=== PATIENT | male | born 1955 | race Caucasian/White ===

== ENCOUNTER 2016-12-07 19:56 | Emergency (ER) | payer MEDICARE ==
--- NOTE | 2016-12-07 20:20 | ED Physician Chart ---
Chief Complaint/HPI - Patient Information Date Seen:: 12/07/16 Time Seen:: 20:14 Chief Complaint:: ABDOMINAL PAIN History of Present Illness:: THIS IS A 61 YO MALE DOWNS SYNDROME PATIENT WITH EPIGASTRIC PAIN THAT STARTED THIS EVENING. HE HAS NOT VOMITED OR HAD DIARRHEA. HE RECENTLY HAD COLON SURGERY FOR CANCER. 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 HE ALSO HAS A HISTORY OF SEIZURES. Historian:: EMS, Medical Records Review:: Nurse's Note Reviewed Review of Systems - Review of Systems General/Constitutional: No fever, No chills, No weight loss, No weakness, No diaphoresis, No edema, No loss of appetite Skin: No skin lesions, No rash, No bruising Head: No headache, No light-headedness Eyes: No loss of vision, No pain, No diplopia ENT: No earache, No nasal drainage, No sore throat, No tinnitus Neck: No neck pain, No swelling, No thyromegaly, No stiffness, No mass noted Cardio Vascular: No chest pain, No palpitations, No PND, No orthopnea, No edema Pulmonary: No SOB, No cough, No sputum, No wheezing GI: No nausea, No vomiting, No diarrhea, Pain, No melena, No hematochezia, No constipation, No hematemesis G/U: No dysuria, No frequency, No hematuria Musculoskeletal: No bone or joint pain, No back pain, No muscle pain Endocrine: No polyuria, No polydipsia Psychiatric: No prior psych history, No depression, No anxiety, No suicidal ideation Hematopoietic: No bruising, No lymphadenopathy Allergic/Immuno: No urticaria, No angioedema Neurological: No syncope, No focal symptoms, No weakness, No paresthesia, No headache, No seizure, No dizziness, No confusion, No vertigo Past Medical History - Past Medical History Past Medical History: HTN, Seizures, Dementia Family History: None Social History: Non Smoker, No Alcohol, No Drug Use, Single, Care Facility Surgical History: other (COLON SURGERY) Psychiatricy History: Dementia Medication: Reviewed Family Medical History - Family Member Mother History Unknown: Yes Physical Exam - Physical Examination General/Constitutional: Awake, Well-developed, well-nourished, Alert, No distress, GCS 15, Non-toxic appearing, Ambulatory Head: Atraumatic Eyes: Lids, conjuctiva normal, PERRL, EOMI Skin: Nl inspection, No rash, No skin lesions, No ecchymosis, Well hydrated, No lymphadenopathy ENMT: External ears, nose nl, Nasal exam nl, Lips, teeth, gums nl Neck: Nontender, Full ROM w/o pain, No JVD, No nuchal rigidity, No bruit, No mass, No stridor Respiratory: Nl effort/Exclusion, Clear to Auscultation, No Wheeze/Rhonchi/Rales Cardio Vascular: RRR, No murmur, gallop, rubs, NL S1 S2 GI: No tenderness/rebounding/guarding, No organomegaly, No hernia, Normal BS's, No mass/bruits, No McBurney tenderness Other GI comments:: THE ABDOMEN IS SLIGHTLY DISTENDED BUT NOT TENDER. : No CVA tenderness Extremities: No tenderness or effusion, Full ROM, normal strength in all extremities, No edema, Normal digits & nails Neuro/Psych: Alert/oriented, DTR's symmetric, Normal sensory exam, Normal motor strength, Judgement/insight normal, Mood normal, Normal gait, No focal deficits Misc: normal gait, Normal back, No paraspinal tenderness Labs/Radiology/EKG Results - Lab Results Results: Laboratory Results - last 24 hr 12/07/16 12/07/16 12/07/16 20:10 20:10 20:10 WBC 5.2 RBC 3.54 L Hgb 12.5 L Hct 36.3 L MCV 102.6 H MCH 35.3 H MCHC Differential 34.5 RDW 12.4 Plt Count 168 MPV 7.0 Neutrophils (Manual) 59 Lymphocytes 29 Monocytes 11 H Eosinophils 1 Platelet Estimate ADEQUATE Platelet Morphology NORMAL RBC Morph Micro Appear NORMAL PT 9.3 L INR 0.90 PTT (Actin FS) 22.7 L Sodium Potassium Chloride Carbon Dioxide Anion Gap BUN Creatinine Est GFR ( Amer) Est GFR (Non-Af Amer) BUN/Creatinine Ratio Glucose Calcium Total Bilirubin AST ALT Alkaline Phosphatase Troponin I Total Protein Albumin Globulin Albumin/Globulin Ratio Triglycerides 82 Cholesterol 172 LDL Cholesterol Direct 93 HDL Cholesterol 59 TSH Urine Source Urine Color Urine Clarity Urine pH Ur Specific [place] Urine Protein Urine Glucose (UA) Urine Ketones Urine Blood Urine Nitrate Urine Bilirubin Urine Urobilinogen Ur Leukocyte Esterase Urine RBC Urine WBC Ur Epithelial Cells Amorphous Sediment Urine Bacteria Urine Mucus Carbamazepine 12/07/16 12/07/16 12/07/16 20:10 20:10 20:10 WBC RBC Hgb Hct MCV MCH MCHC Differential RDW Plt Count MPV Neutrophils (Manual) Lymphocytes Monocytes Eosinophils Platelet Estimate Platelet Morphology RBC Morph Micro Appear PT INR PTT (Actin FS) Sodium 130 L Potassium 3.9 Chloride 104 Carbon Dioxide 22.3 Anion Gap 7.6 BUN 17 Creatinine 0.6 L Est GFR ( Amer) > 60.0 Est GFR (Non-Af Amer) > 60.0 BUN/Creatinine Ratio 28.3 Glucose 107 H Calcium 9.4 Total Bilirubin 0.4 AST 18 ALT 11 Alkaline Phosphatase 44 Troponin I < 0.01 L Total Protein 7.2 Albumin 3.8 L Globulin 3.4 Albumin/Globulin Ratio 1.1 Triglycerides Cholesterol LDL Cholesterol Direct HDL Cholesterol TSH 1.84 Urine Source Urine Color Urine Clarity Urine pH Ur Specific [place] Urine Protein Urine Glucose (UA) Urine Ketones Urine Blood Urine Nitrate Urine Bilirubin Urine Urobilinogen Ur Leukocyte Esterase Urine RBC Urine WBC Ur Epithelial Cells Amorphous Sediment Urine Bacteria Urine Mucus Carbamazepine 12/07/16 12/07/16 20:10 21:10 WBC RBC Hgb Hct MCV MCH MCHC Differential RDW Plt Count MPV Neutrophils (Manual) Lymphocytes Monocytes Eosinophils Platelet Estimate Platelet Morphology RBC Morph Micro Appear PT INR PTT (Actin FS) Sodium Potassium Chloride Carbon Dioxide Anion Gap BUN Creatinine Est GFR ( Amer) Est GFR (Non-Af Amer) BUN/Creatinine Ratio Glucose Calcium Total Bilirubin AST ALT Alkaline Phosphatase Troponin I Total Protein Albumin Globulin Albumin/Globulin Ratio Triglycerides Cholesterol LDL Cholesterol Direct HDL Cholesterol TSH Urine Source CLEAN C Urine Color YELLOW Urine Clarity CLEAR Urine pH 6.5 Ur Specific [place] 1.025 Urine Protein TRACE Urine Glucose (UA) NEGATIVE Urine Ketones TRACE Urine Blood NEGATIVE Urine Nitrate NEGATIVE Urine Bilirubin NEGATIVE Urine Urobilinogen 0.2 Ur Leukocyte Esterase NEGATIVE Urine RBC NONE SEEN Urine WBC 0-2 Ur Epithelial Cells RARE Amorphous Sediment FEW URATES Urine Bacteria FEW Urine Mucus FEW Carbamazepine 7.2 - Radiology Results Results: ULTRASOUND OF THE ABDOMEN = NAD - EKG Interpretations EKG Time:: 20:26 Rhythm: sinus [place]: left Rate: 80 ED Septic Shock - . Is Septic Shock (SBP<90, OR Lactate>4 mmol\L) present?: No Reassessment (Disposition) - Reassessment Reassessment Condition:: Improved - Diagnosis Diagnosis:: GASTRITIS ANEMIA - Aftercare/Follow up Instructions Aftercare/Follow-Up Instructions:: Counseled pt regarding lab results/diagnosis & need follow up, Refer to Discharge Instructions, Counseled pt & family regarding lab results/diagnosis & need follow up - Patient Disposition Discharge/Transfer:: Home Condition at Disposition:: Improved ED Discharge Plan - Patient Disposition Admit/Discharge/Transfer: PT DISCHARGED HOME Condition at Disposition: Improved
[2016-12-07 20:47] LABS: HEMATOCRIT 36.3 % (39.0-49.0); HEMOGLOBIN 12.5 gm/dL (13.2-17.3); MEAN CELL VOLUME 102.6 fl (80-99); MEAN CORPUSCULAR HEMOGLOBIN 35.3 pg (26.0-30.0); MEAN CORPUSCULAR HGB CONC 34.5 pg (28.0-36.0); PLATELET COUNT 168 Th/cmm (150-400); RED BLOOD COUNT 3.54 Mil/cmm (4.30-5.70); RED CELL DISTRIBUTION WIDTH 12.4 % (11.5-20.0); WHITE BLOOD COUNT 5.2 Th/cmm (4.8-10.8)
[2016-12-07 21:01] LABS: INR 0.9 (0.5-1.4); PROTHROMBIN TIME (TEST) 9.3 SECONDS (9.5-11.5)
[2016-12-07 21:07] LABS: ALB/GLOB RATIO 1.1 (1.0-1.8); ALKALINE PHOSPHATASE 44 U/L (34-104); ANION GAP 7.6 (7.0-16.0); BILIRUBIN,TOTAL 0.4 mg/dL (0.3-1.0); BUN - UREA NITROGEN 17 mg/dL (7-25); BUN/CREATININE RATIO 28.3; CALCIUM SERUM 9.4 mg/dL (8.6-10.3); CARBON DIOXIDE 22.3 mEq/L (21.0-31.0); CHLORIDE 104 mEq/L (98-107); CHOLESTEROL 172 mg/dL (<200); CREATININE - SERUM 0.6 mg/dL (0.7-1.3); GLUCOSE 107 mg/dL (70-105); POTASSIUM SERUM 3.9 mEq/L (3.5-5.1); SGOT 18 U/L (13-39); SGPT/ALT 11 U/L (7-52); SODIUM SERUM 130 mEq/L (136-145); TRIGLYCERIDES 82 mg/dL (<150)
[2016-12-07 21:17] LABS: EOSINOPHIL 1 % (0-5); NEUTROPHILS 59 % (40-80); PLATELET ESTIMATE ADEQUATE (NORMAL); PLATELET MORPHOLOGY NORMAL (NORMAL); TOTAL CELLS COUNTED 100
[2016-12-07 21:40] LABS: URINE BILIRUBIN NEGATIVE (NEGATIVE); URINE BLOOD NEGATIVE (NEGATIVE); URINE COLOR YELLOW; URINE GLUCOSE (UA) NEGATIVE (NEGATIVE); URINE KETONE TRACE mg/dL (NEGATIVE); URINE PH 6.5; URINE PROTEIN TRACE mg/dL (NEGATIVE); URINE UROBILINOGEN 0.2 E.U./dL (0.2 - 1.0)
[2016-12-07 21:41] LABS: URINE AMORPHOUS SEDIMENT FEW URATES (NONE SEEN); URINE BACTERIA FEW /hpf (NONE SEEN); URINE EPITHELIAL CELLS RARE /lpf (FEW); URINE RBC NONE SEEN /hpf (0-5); URINE WBC 0-2 /hpf (0-5)
--- NOTE | 2016-12-08 08:49 | Diagnostic Imaging Report ---
Portable chest x-ray HISTORY: Pain The heart size is difficult to assess with portable technique and a poor inspiration. No acute focal pulmonary processes. A vascular catheter tip extends into the region of the right atrium. No hilar or mediastinal abnormalities. IMPRESSION: 1. No acute abnormalities 2. Vascular catheter extending into the region of the right atrium.
--- NOTE | 2016-12-08 08:50 | Diagnostic Imaging Report ---
Abdominal ultrasound HISTORY: Pain Exam is limited due to difficulty in patient positioning and mobility. The liver demonstrates an increase in parenchymal echogenicity. The finding may be associated with fatty infiltration and should be correlated with liver function tests. No obvious focal lesions. Gallbladder appears normal. No calculi are seen. No biliary dilatation. The pancreas cannot be seen due to bowel gas. The kidneys appear normal bilaterally. No other retroperitoneal or intra-abdominal abnormalities. IMPRESSION: 1. Somewhat limited exam due to patient immobility and difficulty in positioning. 2. Changes that may be associated with hepatic fatty infiltration. The findings should be correlated with liver function tests.
== END 2016-12-08 00:30 | disposition home or self-care (01) ==
LOC: ER 19:56
DX: K29.40 Chronic atrophic gastritis without bleeding (principal); D64.9 Anemia, unspecified; I10 Essential (primary) hypertension; Z98.890 Other specified postprocedural states
CPT/HCPCS: 36415-UA; 71010-TC; 76700-TC; 80053-TC; 80061-TC; 80156-TC; 81001-TC; 84443-TC; 84484-TC; 85007-TC; 85027-TC; 85610-TC; 85730-TC; 93005; Z7610

== ENCOUNTER 2017-05-19 22:43 | Inpatient (IN) | payer MEDICARE ==
--- NOTE | 2017-05-19 23:07 | ED Physician Chart ---
Chief Complaint/HPI - Patient Information Date Seen:: 05/19/17 Time Seen:: 22:50 Chief Complaint:: Abdominal Pain History of Present Illness:: onset x 2 days of abdominal pain with N/V; no A/D/C, H/As, Neck Pain, C/P, cough , or urinary s/s Allergies:: Allergies Allergy/AdvReac Type Severity Reaction Status Date / Time No Known Allergies Allergy Verified 12/07/16 20:15 Vitals:: Vital Signs - 8 hr 05/19/17 22:50 Temp 97.5 F HR 80 RR 18 BP 170/99 O2 Sat % 94 Historian:: Patient, EMS Review:: Nurse's Note Reviewed, Old Chart Reviewed, EMS run form Reviewed, Transfer documents Reviewed Review of Systems - Review of Systems General/Constitutional: Fever, Chills, No weight loss, Weakness, No diaphoresis , No edema, No loss of appetite Skin: No skin lesions, No rash, No bruising Head: No headache, No light-headedness Eyes: No loss of vision, No pain, No diplopia ENT: No earache, No nasal drainage, No sore throat, No tinnitus Neck: No neck pain, No swelling, No thyromegaly, No stiffness, No mass noted Cardio Vascular: No chest pain, No palpitations, No PND, No orthopnea, No edema Pulmonary: No SOB, No cough, No sputum, No wheezing GI: Nausea, Vomiting, Diarrhea, Pain, Melena, No hematochezia, Constipation, No hematemesis G/U: No dysuria, No frequency, No hematuria Musculoskeletal: No bone or joint pain, No back pain, No muscle pain Endocrine: No polyuria, No polydipsia Psychiatric: No prior psych history, No depression, No anxiety, No suicidal ideation, No homicidal ideation, No auditory hallucination, No visual hallucination Hematopoietic: No bruising, No lymphadenopathy Allergic/Immuno: No urticaria, No angioedema Neurological: No syncope, No focal symptoms, No weakness, No paresthesia, No headache, No seizure, No dizziness, Confusion, No vertigo Past Medical History - Past Medical History Obtainable: Yes Past Medical History: HTN, Dyslipidemia, Arthritis, Dementia, Other (BPH; Anemia , Colon Cancer) Family History: HTN, Cancer Social History: Non Smoker, No Alcohol, No Drug Use, Single, Care Facility Surgical History: None Psychiatricy History: Dementia Medication: Reviewed Family Medical History - Family Member Mother History Unknown: Yes Physical Exam - Physical Examination General/Constitutional: Awake, Well-developed, well-nourished, Alert, No distress, GCS 15, Non-toxic appearing, Ambulatory Head: Atraumatic Eyes: Lids, conjuctiva normal, PERRL, EOMI Skin: Nl inspection, No rash, No skin lesions, No ecchymosis, Well hydrated, No lymphadenopathy ENMT: External ears, nose nl, Nasal exam nl, Lips, teeth, gums nl Neck: Nontender, Full ROM w/o pain, No JVD, No nuchal rigidity, No bruit, No mass, No stridor Respiratory: Nl effort/Exclusion, Clear to Auscultation, No Wheeze/Rhonchi/Rales Cardio Vascular: RRR, No murmur, gallop, rubs, NL S1 S2 GI: No tenderness/rebounding/guarding, No organomegaly, No hernia, Normal BS's, Nondistended, No mass/bruits, No McBurney tenderness : No CVA tenderness Extremities: No tenderness or effusion, Full ROM, normal strength in all extremities, No edema, Normal digits & nails Neuro/Psych: Alert/oriented, DTR's symmetric, Normal sensory exam, Normal motor strength, Judgement/insight normal, Mood normal, Normal gait, No focal deficits Misc: normal gait, Normal back, No paraspinal tenderness Labs/Radiology/EKG Results - Lab Results Results: Na+: 131 - Radiology Results Results: Retroperitoneal Adenopathy ED Septic Shock - . Is Septic Shock (SBP<90, OR Lactate>4 mmol\L) present?: No - <6hrs of presentation: Vital Signs: Vital Signs - 8 hr 05/19/17 22:50 Temp 97.5 F HR 80 RR 18 BP 170/99 O2 Sat % 94 Reassessment (Disposition) - Reassessment Reassessment Condition:: Improved - Diagnosis Diagnosis:: Hyponatremia; Abdominal Pain; Vomiting; AGE; Gastritis; Dehydration - Aftercare/Follow up Instructions Aftercare/Follow-Up Instructions:: Counseled pt regarding lab results/diagnosis & need follow up, Counseled pt & family regarding lab results/diagnosis & need follow up - Patient Disposition Discharge/Transfer:: Acute Care w/in this hosp Accepting Physician:: Dr. Reynolds Time Called:: 114 Time Responded:: 01:15 Admitted to:: Med/Surg Spoke to:: Dr. Reynolds Admitting Medical Physician:: Dr. Reynolds Condition at Disposition:: Stable, Improved
[2017-05-19] MEDS ORDERED: Sodium Chloride 0.9% 1,000 ML IV ONE (23:08)
[2017-05-19 23:45] LABS: % BASOPHILS 0.1 % (0.0-2.0); % EOSINOPHILS 0.9 % (0.0-5.0); HEMATOCRIT 39.2 % (39.0-49.0); HEMOGLOBIN 13.1 gm/dL (13.2-17.3); MEAN CORPUSCULAR HEMOGLOBIN 35.8 pg (26.0-30.0); MEAN CORPUSCULAR HGB CONC 33.4 pg (28.0-36.0); MEAN PLATELET VOLUME 7.5 fl; NEUTROPHILE ABSOLUTE 3.2 Th/cmm (1.8-8.0); PLATELET COUNT 137 Th/cmm (150-400); RED BLOOD COUNT 3.66 Mil/cmm (4.30-5.70); RED CELL DISTRIBUTION WIDTH 16.6 % (11.5-20.0); WHITE BLOOD COUNT 6.2 Th/cmm (4.8-10.8)
[2017-05-19 23:57] LABS: INR 0.94 (0.5-1.4); PROTHROMBIN TIME (TEST) 9.8 SECONDS (9.5-11.5)
[2017-05-19 23:58] LABS: URINE BILIRUBIN NEGATIVE (NEGATIVE); URINE BLOOD TRACE (NEGATIVE); URINE GLUCOSE (UA) NEGATIVE (NEGATIVE); URINE KETONE 15 mg/dL (NEGATIVE); URINE PROTEIN TRACE mg/dL (NEGATIVE); URINE UROBILINOGEN 0.2 E.U./dL (0.2 - 1.0)
[2017-05-20 00:02] LABS: URINE COLOR YELLOW
[2017-05-20 00:02] LABS: AMYLASE SERUM 49 U/L (29-103); LIPASE 11 U/L (11-82)
[2017-05-20 00:03] LABS: URINE BACTERIA NONE SEEN /hpf (NONE SEEN); URINE EPITHELIAL CELLS NONE SEEN /lpf (FEW); URINE RBC 0-2 /hpf (0-5); URINE WBC NONE SEEN /hpf (0-5)
[2017-05-20 00:05] LABS: ALB/GLOB RATIO 1.3 (1.0-1.8); ALKALINE PHOSPHATASE 54 U/L (34-104); ANION GAP 11.9 (7.0-16.0); BILIRUBIN,TOTAL 0.7 mg/dL (0.3-1.0); BUN - UREA NITROGEN 22 mg/dL (7-25); BUN/CREATININE RATIO 31.4; CARBON DIOXIDE 22.7 mEq/L (21.0-31.0); CHLORIDE 101 mEq/L (98-107); CHOLESTEROL 186 mg/dL (<200); CREATININE - SERUM 0.7 mg/dL (0.7-1.3); GLUCOSE 103 mg/dL (70-105); POTASSIUM SERUM 4.6 mEq/L (3.5-5.1); SGOT 27 U/L (13-39); SGPT/ALT 16 U/L (7-52); SODIUM SERUM 131 mEq/L (136-145); TRIGLYCERIDES 105 mg/dL (<150)
[2017-05-20 00:10] LABS: TROP I 0.01 ng/mL (0.01-0.05)
[2017-05-20 00:14] LABS: BNP 13.5 pg/mL (5.0-100.0)
[2017-05-20 00:54] LABS: MEAN CELL VOLUME 107.3 fl (80-99)
[2017-05-20 01:10] LABS: CREATINE KINASE MB 6.1 ng/mL (0.6-6.3)
[2017-05-20] MEDS ORDERED: Guaifenesin DM 10 ML UDC PO PRN (01:36)
[2017-05-20] MEDS ORDERED: Maalox 30 mL Cup PO PRN (01:36)
[2017-05-20] MEDS ORDERED: Lactulose 10 Gm/15 mL 30mL UDC PO PRN (02:00)
[2017-05-20 02:24] VITALS: BP 141/87
[2017-05-20] MEDS: Sodium Chloride 0.9% 1,000 ML IV SCH ×3 (02:59→20:17)
[2017-05-20 07:22] LABS: ANION GAP 9.4 (7.0-16.0); BUN - UREA NITROGEN 20 mg/dL (7-25); BUN/CREATININE RATIO 28.6; CALCIUM SERUM 9.5 mg/dL (8.6-10.3); CARBON DIOXIDE 25.2 mEq/L (21.0-31.0); CHLORIDE 101 mEq/L (98-107); CREATININE - SERUM 0.7 mg/dL (0.7-1.3); GLUCOSE 91 mg/dL (70-105); MAGNESIUM 2.4 mg/dL (1.9-2.7); POTASSIUM SERUM 4.6 mEq/L (3.5-5.1); SODIUM SERUM 131 mEq/L (136-145)
--- NOTE | 2017-05-20 08:07 | Diagnostic Imaging Report ---
CT scan abdomen and pelvis without intravenous contrast HISTORY: Pain, prior surgery. Total DLP equals 482 CTDI equals 8.3 Axial sections were obtained from the xiphoid process down to the pubic symphysis. Limited sections of the lower chest demonstrate coronary artery calcification. Artifact with electrode lead wires noted. The liver exhibits a homogeneous parenchyma. No focal lesions. The spleen appears normal. No focal abnormality seen in the region of the pancreas. No significant focal renal lesions. No calculi. No hydronephrosis. Limited lymph nodes seen in the periaortic region. Findings of questionable significance but should be correlated clinically. Surgical changes associated with a right hemicolectomy noted. No significant bowel dilatation. The exam of the pelvis demonstrates preservation of normal fat planes. No abnormal soft tissue masses or abnormal fluid collections. Small bilateral fat-containing inguinal hernias are noted. Compression fracture of the appears chronic involves the body of T12. IMPRESSION: 1. Surgical changes including findings of prior right hemicolectomy noted. 2. Prominent periaortic lymph nodes. Findings of questionable significance which should be correlated clinically. 3. Compression fracture involving the body of T12 probably chronic. 4. Small bilateral fat-containing inguinal hernias 5. Atherosclerotic vascular changes
--- NOTE | 2017-05-20 08:18 | Diagnostic Imaging Report ---
Portable chest x-ray History: Pain Allowing for portable technique the heart size is normal. No focal pulmonary parenchymal processes. No hilar or mediastinal abnormalities. Pain a vascular catheter tip extends into the region of the right atrium. Impression: 1. No acute abnormalities 2. Vascular catheter tip extending into the region of the right atrium.
[2017-05-20 08:21] LABS: HEMATOCRIT 36.6 % (39.0-49.0); HEMOGLOBIN 12.3 gm/dL (13.2-17.3); MEAN CORPUSCULAR HEMOGLOBIN 36.1 pg (26.0-30.0); MEAN CORPUSCULAR HGB CONC 33.7 pg (28.0-36.0); MEAN PLATELET VOLUME 7.4 fl; PLATELET COUNT 121 Th/cmm (150-400); RED BLOOD COUNT 3.42 Mil/cmm (4.30-5.70); RED CELL DISTRIBUTION WIDTH 16.5 % (11.5-20.0)
[2017-05-20] MEDS: Pantoprazole 40 mg EC Tab PO SCH (08:25)
[2017-05-20] MEDS: Ferrous Sulfate 325 MG TAB PO SCH ×3 (08:27→20:18)
[2017-05-20] MEDS: Multivitamin Tab PO SCH (08:28)
[2017-05-20 08:44] LABS: WHITE BLOOD COUNT 4.4 Th/cmm (4.8-10.8)
[2017-05-20] MEDS ORDERED: [UNRECOGNIZED DRUG - OTHER] PO SCH (09:00)
[2017-05-20] MEDS ORDERED: VIT D3 PO SCH (09:00)
[2017-05-20] MEDS ORDERED: CALCIUM PHOSPHATE DIBAS PO SCH (09:00)
[2017-05-20] MEDS ORDERED: CARBAMAZEPINE 100 MG PO SCH (09:00)
[2017-05-20 09:35] LABS: NEUTROPHILS 37 % (40-80); PLATELET ESTIMATE DECREASED PLATELETS (NORMAL); PLATELET MORPHOLOGY NORMAL (NORMAL); TOTAL CELLS COUNTED 100
[2017-05-20] MEDS: MOMETASONE FUROATE 0.1% TP SCH (17:06)
[2017-05-20] MEDS: CAPECITABINE PO SCH (17:07)
--- NOTE | 2017-05-20 18:11 | Internal Medicine Prog Note ---
Internal Medicine Objective - Results Result Diagrams: 05/20/17 06:50 05/20/17 06:50 Recent Labs: Laboratory Last Values WBC 4.4 Th/cmm (4.8-10.8) L D 05/20/17 06:50 RBC 3.42 Mil/cmm (4.30-5.70) L 05/20/17 06:50 Hgb 12.3 gm/dL (13.2-17.3) L 05/20/17 06:50 Hct 36.6 % (39.0-49.0) L 05/20/17 06:50 MCV 107.0 fl (80-99) H 05/20/17 06:50 MCH 36.1 pg (26.0-30.0) H 05/20/17 06:50 MCHC Differential 33.7 pg (28.0-36.0) 05/20/17 06:50 RDW 16.5 % (11.5-20.0) 05/20/17 06:50 Plt Count 121 Th/cmm (150-400) L 05/20/17 06:50 MPV 7.4 fl 05/20/17 06:50 Neutrophils % 52.0 % (40.0-80.0) 05/19/17 23:30 Lymphocytes % 36.0 % (20.0-50.0) 05/19/17 23:30 Monocytes % 11.0 % (2.0-10.0) H 05/19/17 23:30 Eosinophils % 0.9 % (0.0-5.0) 05/19/17 23:30 Basophils % 0.1 % (0.0-2.0) 05/19/17 23:30 Neutrophils (Manual) 37 % (40-80) L 05/20/17 06:50 Lymphocytes 55 % (20-50) H 05/20/17 06:50 Monocytes 8 % (2-10) 05/20/17 06:50 Platelet Estimate DECREASED PLATELETS (NORMAL) 05/20/17 06:50 Platelet Morphology NORMAL (NORMAL) 05/20/17 06:50 Macrocytosis 1+ 05/20/17 06:50 RBC Morph Micro Appear ABNORMAL (NORMAL) 05/20/17 06:50 PT 9.8 SECONDS (9.5-11.5) 05/19/17 23:30 INR 0.94 (0.5-1.4) 05/19/17 23:30 Sodium 131 mEq/L (136-145) L 05/20/17 06:50 Potassium 4.6 mEq/L (3.5-5.1) 05/20/17 06:50 Chloride 101 mEq/L (98-107) 05/20/17 06:50 Carbon Dioxide 25.2 mEq/L (21.0-31.0) 05/20/17 06:50 Anion Gap 9.4 (7.0-16.0) 05/20/17 06:50 BUN 20 mg/dL (7-25) 05/20/17 06:50 Creatinine 0.7 mg/dL (0.7-1.3) 05/20/17 06:50 Est GFR ( Amer) > 60.0 ml/min (>90) 05/20/17 06:50 Est GFR (Non-Af Amer) > 60.0 ml/min 05/20/17 06:50 BUN/Creatinine Ratio 28.6 05/20/17 06:50 Glucose 91 mg/dL (70-105) 05/20/17 06:50 Calcium 9.5 mg/dL (8.6-10.3) 05/20/17 06:50 Magnesium 2.4 mg/dL (1.9-2.7) 05/20/17 06:50 Total Bilirubin 0.7 mg/dL (0.3-1.0) 05/19/17 23:30 AST 27 U/L (13-39) 05/19/17 23:30 ALT 16 U/L (7-52) 05/19/17 23:30 Alkaline Phosphatase 54 U/L (34-104) 05/19/17 23:30 Creatine Kinase 318 U/L (30-223) H 05/19/17 23:30 CK-MB (CK-2) 6.1 ng/mL (0.6-6.3) 05/19/17 23:30 Troponin I 0.01 ng/mL (0.01-0.05) 05/19/17 23:30 B-Natriuretic Peptide 13.5 pg/mL (5.0-100.0) 05/19/17 23:30 Total Protein 7.8 gm/dL (6.0-8.3) 05/19/17 23:30 Albumin 4.4 gm/dL (4.2-5.5) 05/19/17 23:30 Globulin 3.4 gm/dL 05/19/17 23:30 Albumin/Globulin Ratio 1.3 (1.0-1.8) 05/19/17 23:30 Triglycerides 105 mg/dL (<150) 05/19/17 23:30 Cholesterol 186 mg/dL (<200) 05/19/17 23:30 LDL Cholesterol Direct 110 mg/dL (75-193) 05/19/17 23:30 HDL Cholesterol 64 mg/dL (23-92) 05/19/17 23:30 Amylase 49 U/L (29-103) 05/19/17 23:30 Lipase 11 U/L (11-82) 05/19/17 23:30 TSH 1.83 uIU/ml (0.34-5.60) 05/20/17 06:50 Urine Source RANDOM 05/19/17 23:50 Urine Color YELLOW 05/19/17 23:50 Urine Clarity CLEAR (CLEAR) 05/19/17 23:50 Urine pH 7.0 (4.6 - 8.0) 05/19/17 23:50 Ur Specific [place] 1.020 (1.005-1.030) 05/19/17 23:50 Urine Protein TRACE mg/dL (NEGATIVE) 05/19/17 23:50 Urine Glucose (UA) NEGATIVE mg/dL (NEGATIVE) 05/19/17 23:50 Urine Ketones 15 mg/dL (NEGATIVE) H 05/19/17 23:50 Urine Blood TRACE (NEGATIVE) 05/19/17 23:50 Urine Nitrate NEGATIVE (NEGATIVE) 05/19/17 23:50 Urine Bilirubin NEGATIVE (NEGATIVE) 05/19/17 23:50 Urine Urobilinogen 0.2 E.U./dL (0.2 - 1.0) 05/19/17 23:50 Ur Leukocyte Esterase NEGATIVE (NEGATIVE) 05/19/17 23:50 Urine RBC 0-2 /hpf (0-5) H 05/19/17 23:50 Urine WBC NONE SEEN /hpf (0-5) 05/19/17 23:50 Ur Epithelial Cells NONE SEEN /lpf (FEW) 05/19/17 23:50 Urine Bacteria NONE SEEN /hpf (NONE SEEN) 05/19/17 23:50 - Physical Exam Vitals and I&O: Vital Signs Temp 97.7 F 05/20/17 16:00 Pulse 75 05/20/17 16:00 Resp 18 05/20/17 16:00 BP 171/87 05/20/17 16:00 Pulse Ox 94 05/20/17 16:00 Intake & Output 05/19/17 05/20/17 05/20/17 18:59 06:59 18:59 Intake Total 446.333 761.667 Balance 446.333 761.667 Weight (lbs) 71.214 kg Intake: Intake, IV Amount 446.333 761.667 Sodium Chloride 0.9% 1, 223.333 000 ml @ 100 mls/hr IV . Q10H ONE Rx#:[id number] Sodium Chloride 0.9% 1, 761.667 000 ml @ 100 mls/hr IV . Q10H JALEN Rx#:[id number] Other: # Voids 200 Stool Characteristics Soft Active Medications: Current Medications Acetaminophen (Tylenol) 650 mg PO Q4HR PRN PRN Reason: Pain or Fever >101 Stop: 07/19/17 01:35 Al Hydrox/Mg Hydrox/Simethicone (Maalox) 30 ml PO Q4HR PRN PRN Reason: GI UPSET Stop: 07/19/17 01:35 Amlodipine Besylate (Norvasc) 5 mg PO DAILY [facility] Stop: 07/19/17 08:59 Last Admin: 05/20/17 08:26 Dose: 5 mg Carbamazepine (Tegretol) 200 mg PO BID JALEN PRN Reason: Protocol Stop: 07/19/17 08:59 Last Admin: 05/20/17 17:19 Dose: 200 mg Clonazepam (Klonopin) 0.5 mg PO BID JALEN PRN Reason: Protocol Stop: 07/19/17 08:59 Last Admin: 05/20/17 17:20 Dose: 0.5 mg Cyanocobalamin (Vitamin B12) 1,000 mcg PO DAILY JALEN Stop: 07/19/17 08:59 Last Admin: 05/20/17 08:28 Dose: 1,000 mcg Diphenhydramine HCl (Benadryl) 25 mg PO HS [facility] Stop: 07/19/17 20:59 Divalproex Sodium (Depakote Er) 500 mg PO BID JALEN PRN Reason: Protocol Stop: 07/19/17 08:59 Last Admin: 05/20/17 17:19 Dose: 500 mg Ferrous Sulfate (Iron) 325 mg PO TID JALEN Stop: 07/19/17 08:59 Last Admin: 05/20/17 13:41 Dose: 325 mg Folic Acid (Folate) 1 mg PO DAILY [facility] Stop: 07/19/17 08:59 Last Admin: 05/20/17 08:26 Dose: 1 mg Guaifenesin/Dextromethorphan (Robitussin Dm) 10 ml PO Q6HR PRN PRN Reason: Cough Stop: 07/19/17 01:35 Hydroxyzine HCl (Atarax) 25 mg PO HS PRN; Protocol PRN Reason: Itching Stop: 07/19/17 01:35 Sodium Chloride (Nacl 0.9%) 1,000 mls @ 100 mls/hr IV .Q10H [facility] Stop: 07/19/17 01:34 Last Admin: 05/20/17 10:36 Dose: 100 mls/hr Ibuprofen (Motrin) 600 mg PO TID PRN PRN Reason: Pain (Moderate) Stop: 07/19/17 01:35 Lactulose (Cephulac) 20 gm PO BID PRN PRN Reason: Constipation Stop: 07/19/17 01:59 Lorazepam (Ativan) 1 mg PO BID PRN; Protocol PRN Reason: Anxiety Stop: 07/19/17 01:35 Magnesium Hydroxide (Milk Of Magnesia) 30 ml PO HS [facility] Stop: 07/19/17 20:59 Miscellaneous (Nic Cit/Mag/D3/Zn/Furnace Tapper/Ever/Bor [Citracal-Vit D + Magnesium Tab]) 1 each PO BID [facility] Stop: 07/19/17 08:59 Miscellaneous (Calcium Phosphate Dibas/Vit D3 [Risacal-D Tablet]) 1 tab PO BID [facility] Stop: 07/19/17 08:59 Miscellaneous (Capecitabine [Capecitabine]) 2 tab PO BID [facility] Stop: 07/19/17 08:59 Last Admin: 05/20/17 17:07 Dose: Not Given Miscellaneous (Carbamazepine [Tegretol Xr]) 100 mg PO BID [facility] Stop: 07/19/17 08:59 Mometasone Furoate ([place] 1%) 1 appl TP BID JALEN Stop: 07/19/17 08:59 Last Admin: 05/20/17 17:06 Dose: Not Given Multivitamins/Vitamin C (Theragran) 1 tab PO DAILY [facility]ALEN Stop: 07/19/17 08:59 Last Admin: 05/20/17 08:28 Dose: 1 tab Mupirocin (Bactroban Oint) 1 appl TP BID JALEN Stop: 07/19/17 08:59 Last Admin: 05/20/17 17:28 Dose: 1 appl Ondansetron HCl (Zofran Odt) 8 mg PO Q8H PRN PRN Reason: Nausea / Vomiting Stop: 07/19/17 01:59 Pantoprazole Sodium (Protonix) 40 mg PO DAILY JALEN Stop: 07/19/17 08:59 Last Admin: 05/20/17 08:25 Dose: 40 mg Capecitabine 500mg (Tab) 2 PO BID JALEN Stop: 07/19/17 10:59 Last Admin: 05/20/17 13:40 Dose: 2 Primidone (Mysoline) 50 mg PO BID JALEN Stop: 07/19/17 08:59 Last Admin: 05/20/17 17:20 Dose: 50 mg Prochlorperazine Maleate (Compazine) 10 mg PO Q8HR PRN; Protocol PRN Reason: Nausea / Vomiting Stop: 07/19/17 01:35 Tamsulosin HCl (Flomax) 0.4 mg PO HS JALEN Stop: 07/19/17 20:59
--- NOTE | 2017-05-20 20:19 | History & Physical ---
ADMIT DATE: 05/20/2017 HISTORY OF PRESENT ILLNESS: The patient is complaining of increasing abdominal pain, nausea, vomiting for the last 2 days, came to the Emergency Room, was admitted for abdominal pain, etiology to be determined. The patient is also complaining of neck pain, cough and was also complaining of severe weakness and frequent falls, and the patient resides in a board and care, history of hypertension, hyperlipidemia, arthritis, dementia, history of BPH, , and history of anemia. PHYSICAL EXAMINATION: GENERAL: The patient is awake, alert, and well-developed. HEAD: Normal. ENT: Normal. NECK: Supple and nontender. LUNGS: Clear. CARDIOVASCULAR SYSTEM: S1 and S2 heard. ABDOMEN: Soft. Diffuse tenderness. CENTRAL NERVOUS SYSTEM: Grossly normal. LABORATORY DATA: The patient's sodium was low at 131 and the patient's CAT scan showed retroperitoneal adenopathy. DIAGNOSES: Abdominal pain, etiology to be determined, history of benign prostatitic hyperplasia, history of anemia, history of colon cancer, retroperitoneal lymphadenopathy, dementia, arthritis, hyperlipidemia, dyslipidemia, and hypertension. PLAN: The patient is going to be admitted and I will have a workup done call Dr. Ghotra for consult and I will follow the patient. JOB# [id number]
[2017-05-20] MEDS ORDERED: Magnesium Hydroxide (MOM) 30 mL UDC PO SCH (21:00)
--- NOTE | 2017-05-20 21:15 | Consultation ---
DATE OF CONSULTATION: 05/20/2017 INPATIENT GI CONSULTATION REASON FOR CONSULTATION: Abdominal pain. CONSULTING PHYSICIAN: Dr. Reynolds. HISTORY OF PRESENT ILLNESS: The patient is a 62-year-old male with past medical history significant for stage III metastatic colon cancer, hypertension, arthritis, who is brought in from his board and care facility for abdominal pain. Of note, the patient was diagnosed with metastatic colon cancer in 2014 and has been under the care of Dr. Rivers. He has had a right hemicolectomy in 2015 and has been found to have recurrence in lymph nodes with elevated CEA level. As per the caregiver at his nursing facility, the patient has intermittently been complaining of some abdominal pain over the past week, although the periods between episodes have been pain free. It is unknown whether he is having adequate bowel movements there given he quickly flushes the toilet after he uses the restroom, although he does report he is having bowel movements. Given he had a particularly severe episode of abdominal pain last night, he was brought into the Emergency Room for further evaluation. Once in the Emergency Room, he did have an abdominal pelvis CT that showed surgical changes consistent with a right prior hemicolectomy and prominent lymph nodes, but no evidence of colitis. At the current time, the patient is lying in bed, in no distress and reports he is in absolutely no pain. The nurse reports he had a small bowel movement this morning that was brown and soft. PAST MEDICAL HISTORY: Hypertension, mental retardation, arthritis, benign prostatic hypertrophy, and metastatic colon cancer. PAST SURGICAL HISTORY: Right hemicolectomy in 2014. FAMILY HISTORY: Not known. The patient is unable to provide this information. SOCIAL HISTORY: The patient lives at a [facility] facility and does not use alcohol or tobacco products. ALLERGIES: There are no known drug allergies. REVIEW OF SYSTEMS: Not able to be performed thoroughly given the patient's poor mental status, although he does report he has no pain, no jaundice, and no blood in his stool and has not been vomiting. PHYSICAL EXAMINATION: VITAL SIGNS: Show blood pressure 141/87, pulse of 68, temperature 97.2 Fahrenheit, and O2 of 95% on room air. GENERAL: The patient is lying flat in bed in no apparent distress. He is alert and oriented x 1. HEENT: There is no scleral icterus. Pupils are equal and reactive to light. Moist mucous membranes. Extraocular muscles are intact. NECK: No JVD, no thyromegaly, and no lymphadenopathy. CHEST: Clear to auscultation bilaterally. ABDOMEN: Soft and obese. There is a well-healed surgical scar. There is no tenderness to deep or light palpation in any quadrant. No guarding, no rebound, no fluid wave, and no distention. EXTREMITIES: There is no pitting edema. Positive pulses. NEUROLOGIC: Nonfocal. SKIN: No jaundice. No obvious rashes. LABORATORY DATA: White blood cell count is 6.2, hemoglobin 13.1, and platelet level 137,000. INR 0.9. Sodium 131, BUN 22, creatinine 0.7, AST 27, ALT 16, and total bilirubin 0.7. BNP 13.5 and lipase 11. IMAGING: CT abdomen and pelvis was performed in the Emergency Room and shows liver showing homogeneous parenchyma, no focal lesions. Spleen appears normal. No focal abnormality in the region of the pancreas, limited lymph nodes seen in the region, surgical changes associated with right hemicolectomy. No significant bowel dilation. IMPRESSION: This is a 62-year-old man with past medical history significant for metastatic colon cancer with right hemicolectomy in 2014. Now receiving chemotherapy with recurrence. Here for intermittent abdominal pain. 1. Metastatic colon cancer, on chemotherapy. 2. Intermittent abdominal pain. 3. Mental retardation. DISCUSSION: It is difficult to determine the origin of this patient's pain as he is currently pain free at the moment. I did speak with Dr. Rivers this afternoon to speak about the patient's colon cancer, and he reports that he is on chemotherapy at this time given recurrence of metastatic disease. I asked if a colonoscopy at this point would be helpful towards the management of his disease and indicates that there might be colonic recurrence and Dr. Rivers reports this would not change his management. There is no evidence of a colonic obstruction on CT scan. The patient is having a bowel movement here today, thus I do not feel a colonoscopy is necessary. This patient's abdominal pain may be due to obstipation or constipation and I would ensure that he is having adequate bowel regimen to prevent any buildup of stool. He may be having pain related to his metastatic disease in general, which is typical for metastatic colon cancer in the abdomen, difficult to manage this type of pain and it does sometimes require pain management service. PLAN: 1. We will ensure that the patient has a strong bowel regimen at the time being and while he goes back to his board and care facility. 2. Do not plan for colonoscopy at this time as stated above. 3. If his pain significantly worsens in the future, we can consider colonoscopy, although I doubt this will [employer] card [employer]. He may need to see a pain management service to help with cancer-related pain in the future as well. There is no sign of infection at this time, thus unlikely to benefit from antibiotics. I will continue to follow. Thank you for allowing me to participate in the care of this patient. Please call with any further questions. JOB# [id number]
[2017-05-21] MEDS: Sodium Chloride 0.9% 1,000 ML IV SCH (08:50)
[2017-05-21] MEDS: Pantoprazole 40 mg EC Tab PO SCH (08:51)
[2017-05-21] MEDS: Ferrous Sulfate 325 MG TAB PO SCH ×2 (08:51→13:40)
[2017-05-21] MEDS: Multivitamin Tab PO SCH (08:52)
--- NOTE | 2017-05-21 08:57 | General Progress Note ---
Subjective - Review of Systems Events since last encounter: patient continues to c/o abd pain , nausea patient states feeling weak Objective - Results Result Diagrams: 05/20/17 06:50 05/20/17 06:50 Recent Labs: Laboratory Last Values WBC 4.4 Th/cmm (4.8-10.8) L D 05/20/17 06:50 RBC 3.42 Mil/cmm (4.30-5.70) L 05/20/17 06:50 Hgb 12.3 gm/dL (13.2-17.3) L 05/20/17 06:50 Hct 36.6 % (39.0-49.0) L 05/20/17 06:50 MCV 107.0 fl (80-99) H 05/20/17 06:50 MCH 36.1 pg (26.0-30.0) H 05/20/17 06:50 MCHC Differential 33.7 pg (28.0-36.0) 05/20/17 06:50 RDW 16.5 % (11.5-20.0) 05/20/17 06:50 Plt Count 121 Th/cmm (150-400) L 05/20/17 06:50 MPV 7.4 fl 05/20/17 06:50 Neutrophils % 52.0 % (40.0-80.0) 05/19/17 23:30 Lymphocytes % 36.0 % (20.0-50.0) 05/19/17 23:30 Monocytes % 11.0 % (2.0-10.0) H 05/19/17 23:30 Eosinophils % 0.9 % (0.0-5.0) 05/19/17 23:30 Basophils % 0.1 % (0.0-2.0) 05/19/17 23:30 Neutrophils (Manual) 37 % (40-80) L 05/20/17 06:50 Lymphocytes 55 % (20-50) H 05/20/17 06:50 Monocytes 8 % (2-10) 05/20/17 06:50 Platelet Estimate DECREASED PLATELETS (NORMAL) 05/20/17 06:50 Platelet Morphology NORMAL (NORMAL) 05/20/17 06:50 Macrocytosis 1+ 05/20/17 06:50 RBC Morph Micro Appear ABNORMAL (NORMAL) 05/20/17 06:50 PT 9.8 SECONDS (9.5-11.5) 05/19/17 23:30 INR 0.94 (0.5-1.4) 05/19/17 23:30 Sodium 131 mEq/L (136-145) L 05/20/17 06:50 Potassium 4.6 mEq/L (3.5-5.1) 05/20/17 06:50 Chloride 101 mEq/L (98-107) 05/20/17 06:50 Carbon Dioxide 25.2 mEq/L (21.0-31.0) 05/20/17 06:50 Anion Gap 9.4 (7.0-16.0) 05/20/17 06:50 BUN 20 mg/dL (7-25) 05/20/17 06:50 Creatinine 0.7 mg/dL (0.7-1.3) 05/20/17 06:50 Est GFR ( Amer) > 60.0 ml/min (>90) 05/20/17 06:50 Est GFR (Non-Af Amer) > 60.0 ml/min 05/20/17 06:50 BUN/Creatinine Ratio 28.6 05/20/17 06:50 Glucose 91 mg/dL (70-105) 05/20/17 06:50 Calcium 9.5 mg/dL (8.6-10.3) 05/20/17 06:50 Magnesium 2.4 mg/dL (1.9-2.7) 05/20/17 06:50 Total Bilirubin 0.7 mg/dL (0.3-1.0) 05/19/17 23:30 AST 27 U/L (13-39) 05/19/17 23:30 ALT 16 U/L (7-52) 05/19/17 23:30 Alkaline Phosphatase 54 U/L (34-104) 05/19/17 23:30 Creatine Kinase 318 U/L (30-223) H 05/19/17 23:30 CK-MB (CK-2) 6.1 ng/mL (0.6-6.3) 05/19/17 23:30 Troponin I 0.01 ng/mL (0.01-0.05) 05/19/17 23:30 B-Natriuretic Peptide 13.5 pg/mL (5.0-100.0) 05/19/17 23:30 Total Protein 7.8 gm/dL (6.0-8.3) 05/19/17 23:30 Albumin 4.4 gm/dL (4.2-5.5) 05/19/17 23:30 Globulin 3.4 gm/dL 05/19/17 23:30 Albumin/Globulin Ratio 1.3 (1.0-1.8) 05/19/17 23:30 Triglycerides 105 mg/dL (<150) 05/19/17 23:30 Cholesterol 186 mg/dL (<200) 05/19/17 23:30 LDL Cholesterol Direct 110 mg/dL (75-193) 05/19/17 23:30 HDL Cholesterol 64 mg/dL (23-92) 05/19/17 23:30 Amylase 49 U/L (29-103) 05/19/17 23:30 Lipase 11 U/L (11-82) 05/19/17 23:30 TSH 1.83 uIU/ml (0.34-5.60) 05/20/17 06:50 Urine Source RANDOM 05/19/17 23:50 Urine Color YELLOW 05/19/17 23:50 Urine Clarity CLEAR (CLEAR) 05/19/17 23:50 Urine pH 7.0 (4.6 - 8.0) 05/19/17 23:50 Ur Specific [place] 1.020 (1.005-1.030) 05/19/17 23:50 Urine Protein TRACE mg/dL (NEGATIVE) 05/19/17 23:50 Urine Glucose (UA) NEGATIVE mg/dL (NEGATIVE) 05/19/17 23:50 Urine Ketones 15 mg/dL (NEGATIVE) H 05/19/17 23:50 Urine Blood TRACE (NEGATIVE) 05/19/17 23:50 Urine Nitrate NEGATIVE (NEGATIVE) 05/19/17 23:50 Urine Bilirubin NEGATIVE (NEGATIVE) 05/19/17 23:50 Urine Urobilinogen 0.2 E.U./dL (0.2 - 1.0) 05/19/17 23:50 Ur Leukocyte Esterase NEGATIVE (NEGATIVE) 05/19/17 23:50 Urine RBC 0-2 /hpf (0-5) H 05/19/17 23:50 Urine WBC NONE SEEN /hpf (0-5) 05/19/17 23:50 Ur Epithelial Cells NONE SEEN /lpf (FEW) 05/19/17 23:50 Urine Bacteria NONE SEEN /hpf (NONE SEEN) 05/19/17 23:50 - Physical Exam Vitals and I&O: Vital Signs Temp 97.4 F 05/21/17 07:53 Pulse 68 05/21/17 07:53 Resp 18 05/21/17 07:53 BP 149/80 05/21/17 07:53 Pulse Ox 100 05/21/17 07:53 Intake & Output 05/20/17 05/21/17 05/21/17 18:59 06:59 18:59 Intake Total 540.092 4196.333 Balance 402.785 9668.333 Weight (lbs) 71.327 kg Intake: Intake, IV Amount 761.667 968.333 Sodium Chloride 0.9% 1, 761.667 968.333 000 ml @ 100 mls/hr IV . Q10H JALEN Rx#:[id number] Oral 360 Other: # Voids 4 Stool Characteristics Soft Active Medications: Current Medications Acetaminophen (Tylenol) 650 mg PO Q4HR PRN PRN Reason: Pain or Fever >101 Stop: 07/19/17 01:35 Al Hydrox/Mg Hydrox/Simethicone (Maalox) 30 ml PO Q4HR PRN PRN Reason: GI UPSET Stop: 07/19/17 01:35 Amlodipine Besylate (Norvasc) 5 mg PO DAILY [facility]AL[facility] Stop: 07/19/17 08:59 Last Admin: 05/20/17 08:26 Dose: 5 mg Carbamazepine (Tegretol) 200 mg PO BID JALEN PRN Reason: Protocol Stop: 07/19/17 08:59 Last Admin: 05/20/17 17:19 Dose: 200 mg Clonazepam (Klonopin) 0.5 mg PO BID JALEN PRN Reason: Protocol Stop: 07/19/17 08:59 Last Admin: 05/20/17 17:20 Dose: 0.5 mg Cyanocobalamin (Vitamin B12) 1,000 mcg PO DAILY [facility] Stop: 07/19/17 08:59 Last Admin: 05/20/17 08:28 Dose: 1,000 mcg Diphenhydramine HCl (Benadryl) 25 mg PO HS [facility]AL[facility] Stop: 07/19/17 20:59 Last Admin: 05/20/17 20:18 Dose: 25 mg Divalproex Sodium (Depakote Er) 500 mg PO BID JALEN PRN Reason: Protocol Stop: 07/19/17 08:59 Last Admin: 05/20/17 17:19 Dose: 500 mg Ferrous Sulfate (Iron) 325 mg PO TID [facility] Stop: 07/19/17 08:59 Last Admin: 05/20/17 20:18 Dose: 325 mg Folic Acid (Folate) 1 mg PO DAILY [facility] Stop: 07/19/17 08:59 Last Admin: 05/20/17 08:26 Dose: 1 mg Guaifenesin/Dextromethorphan (Robitussin Dm) 10 ml PO Q6HR PRN PRN Reason: Cough Stop: 07/19/17 01:35 Hydroxyzine HCl (Atarax) 25 mg PO HS PRN; Protocol PRN Reason: Itching Stop: 07/19/17 01:35 Sodium Chloride (Nacl 0.9%) 1,000 mls @ 100 mls/hr IV .Q10H [facility] Stop: 07/19/17 01:34 Last Admin: 05/20/17 20:17 Dose: 100 mls/hr Ibuprofen (Motrin) 600 mg PO TID PRN PRN Reason: Pain (Moderate) Stop: 07/19/17 01:35 Lactulose (Cephulac) 20 gm PO BID PRN PRN Reason: Constipation Stop: 07/19/17 01:59 Lorazepam (Ativan) 1 mg PO BID PRN; Protocol PRN Reason: Anxiety Stop: 07/19/17 01:35 Magnesium Hydroxide (Milk Of Magnesia) 30 ml PO HS [facility] Stop: 07/19/17 20:59 Last Admin: 05/20/17 20:18 Dose: 30 ml Miscellaneous (Nic Cit/Mag/D3/Zn/Inventory Associate/Ever/Bor [Citracal-Vit D + Magnesium Tab]) 1 each PO BID [facility] Stop: 07/19/17 08:59 Miscellaneous (Calcium Phosphate Dibas/Vit D3 [Risacal-D Tablet]) 1 tab PO BID [facility] Stop: 07/19/17 08:59 Miscellaneous (Capecitabine [Capecitabine]) 2 tab PO BID [facility] Stop: 07/19/17 08:59 Last Admin: 05/20/17 17:07 Dose: Not Given Miscellaneous (Carbamazepine [Tegretol Xr]) 100 mg PO BID [facility] Stop: 07/19/17 08:59 Mometasone Furoate (Elocon 1%) 1 appl TP BID [facility] Stop: 07/19/17 08:59 Last Admin: 05/20/17 17:06 Dose: Not Given Multivitamins/Vitamin C (Theragran) 1 tab PO DAILY [facility] Stop: 07/19/17 08:59 Last Admin: 05/20/17 08:28 Dose: 1 tab Mupirocin (Bactroban Oint) 1 appl TP BID [facility] Stop: 07/19/17 08:59 Last Admin: 05/20/17 17:28 Dose: 1 appl Ondansetron HCl (Zofran Odt) 8 mg PO Q8H PRN PRN Reason: Nausea / Vomiting Stop: 07/19/17 01:59 Pantoprazole Sodium (Protonix) 40 mg PO DAILY [facility] Stop: 07/19/17 08:59 Last Admin: 05/20/17 08:25 Dose: 40 mg Capecitabine 500mg (Tab) 2 PO BID [facility] Stop: 07/19/17 10:59 Last Admin: 05/20/17 13:40 Dose: 2 Primidone (Mysoline) 50 mg PO BID [facility] Stop: 07/19/17 08:59 Last Admin: 05/20/17 17:20 Dose: 50 mg Prochlorperazine Maleate (Compazine) 10 mg PO Q8HR PRN; Protocol PRN Reason: Nausea / Vomiting Stop: 07/19/17 01:35 Tamsulosin HCl (Flomax) 0.4 mg PO HS [facility] Stop: 07/19/17 20:59 Last Admin: 05/20/17 20:18 Dose: 0.4 mg General: No acute distress HEENT: Atraumatic Cardiovascular: Regular rate, Normal S1, Normal S2 Abdomen: Bowel sounds Assessment/Plan - Problem List Patient Problems: All Active Problems Abdominal pain (Acute) R10.9 Arthritis (Acute) M19.90 Dementia (Acute) F03.90 HTN (hypertension) (Acute) I10 Hyperlipidemia (Acute) E78.5 Retroperitoneal lymphadenopathy (Acute) R59.0 h/o anemia (Acute) h/o benign prostate hyperplasia (Acute) h/o colon cancer (Acute) - Plan Plan: monitor vitals/diet labs f/up consultants
[2017-05-21] MEDS: CAPECITABINE PO SCH (11:03)
[2017-05-21] MEDS: MOMETASONE FUROATE 0.1% TP SCH (11:04)
[2017-05-21] MEDS ORDERED: Calcium Carb/Vit D 500 mg/200 U Tab PO SCH (12:00)
[2017-05-21] MEDS ORDERED: MINERAL OIL ENEMA 135 ML BOTTLE RC ONE (14:48)
--- NOTE | 2017-05-21 14:51 | GI Progress Note ---
Subjective - Review of Systems Service Date: 05/21/17 Subjective: Pt reports he is not in any pain. Has no complaints. RN notes pt without BM today. Objective - Results Result Diagrams: 05/20/17 06:50 05/20/17 06:50 Recent Labs: Laboratory Last Values WBC 4.4 Th/cmm (4.8-10.8) L D 05/20/17 06:50 RBC 3.42 Mil/cmm (4.30-5.70) L 05/20/17 06:50 Hgb 12.3 gm/dL (13.2-17.3) L 05/20/17 06:50 Hct 36.6 % (39.0-49.0) L 05/20/17 06:50 MCV 107.0 fl (80-99) H 05/20/17 06:50 MCH 36.1 pg (26.0-30.0) H 05/20/17 06:50 MCHC Differential 33.7 pg (28.0-36.0) 05/20/17 06:50 RDW 16.5 % (11.5-20.0) 05/20/17 06:50 Plt Count 121 Th/cmm (150-400) L 05/20/17 06:50 MPV 7.4 fl 05/20/17 06:50 Neutrophils % 52.0 % (40.0-80.0) 05/19/17 23:30 Lymphocytes % 36.0 % (20.0-50.0) 05/19/17 23:30 Monocytes % 11.0 % (2.0-10.0) H 05/19/17 23:30 Eosinophils % 0.9 % (0.0-5.0) 05/19/17 23:30 Basophils % 0.1 % (0.0-2.0) 05/19/17 23:30 Neutrophils (Manual) 37 % (40-80) L 05/20/17 06:50 Lymphocytes 55 % (20-50) H 05/20/17 06:50 Monocytes 8 % (2-10) 05/20/17 06:50 Platelet Estimate DECREASED PLATELETS (NORMAL) 05/20/17 06:50 Platelet Morphology NORMAL (NORMAL) 05/20/17 06:50 Macrocytosis 1+ 05/20/17 06:50 RBC Morph Micro Appear ABNORMAL (NORMAL) 05/20/17 06:50 PT 9.8 SECONDS (9.5-11.5) 05/19/17 23:30 INR 0.94 (0.5-1.4) 05/19/17 23:30 Sodium 131 mEq/L (136-145) L 05/20/17 06:50 Potassium 4.6 mEq/L (3.5-5.1) 05/20/17 06:50 Chloride 101 mEq/L (98-107) 05/20/17 06:50 Carbon Dioxide 25.2 mEq/L (21.0-31.0) 05/20/17 06:50 Anion Gap 9.4 (7.0-16.0) 05/20/17 06:50 BUN 20 mg/dL (7-25) 05/20/17 06:50 Creatinine 0.7 mg/dL (0.7-1.3) 05/20/17 06:50 Est GFR ( Amer) > 60.0 ml/min (>90) 05/20/17 06:50 Est GFR (Non-Af Amer) > 60.0 ml/min 05/20/17 06:50 BUN/Creatinine Ratio 28.6 05/20/17 06:50 Glucose 91 mg/dL (70-105) 05/20/17 06:50 Calcium 9.5 mg/dL (8.6-10.3) 05/20/17 06:50 Magnesium 2.4 mg/dL (1.9-2.7) 05/20/17 06:50 Total Bilirubin 0.7 mg/dL (0.3-1.0) 05/19/17 23:30 AST 27 U/L (13-39) 05/19/17 23:30 ALT 16 U/L (7-52) 05/19/17 23:30 Alkaline Phosphatase 54 U/L (34-104) 05/19/17 23:30 Creatine Kinase 318 U/L (30-223) H 05/19/17 23:30 CK-MB (CK-2) 6.1 ng/mL (0.6-6.3) 05/19/17 23:30 Troponin I 0.01 ng/mL (0.01-0.05) 05/19/17 23:30 B-Natriuretic Peptide 13.5 pg/mL (5.0-100.0) 05/19/17 23:30 Total Protein 7.8 gm/dL (6.0-8.3) 05/19/17 23:30 Albumin 4.4 gm/dL (4.2-5.5) 05/19/17 23:30 Globulin 3.4 gm/dL 05/19/17 23:30 Albumin/Globulin Ratio 1.3 (1.0-1.8) 05/19/17 23:30 Triglycerides 105 mg/dL (<150) 05/19/17 23:30 Cholesterol 186 mg/dL (<200) 05/19/17 23:30 LDL Cholesterol Direct 110 mg/dL (75-193) 05/19/17 23:30 HDL Cholesterol 64 mg/dL (23-92) 05/19/17 23:30 Amylase 49 U/L (29-103) 05/19/17 23:30 Lipase 11 U/L (11-82) 05/19/17 23:30 TSH 1.83 uIU/ml (0.34-5.60) 05/20/17 06:50 Urine Source RANDOM 05/19/17 23:50 Urine Color YELLOW 05/19/17 23:50 Urine Clarity CLEAR (CLEAR) 05/19/17 23:50 Urine pH 7.0 (4.6 - 8.0) 05/19/17 23:50 Ur Specific [place] 1.020 (1.005-1.030) 05/19/17 23:50 Urine Protein TRACE mg/dL (NEGATIVE) 05/19/17 23:50 Urine Glucose (UA) NEGATIVE mg/dL (NEGATIVE) 05/19/17 23:50 Urine Ketones 15 mg/dL (NEGATIVE) H 05/19/17 23:50 Urine Blood TRACE (NEGATIVE) 05/19/17 23:50 Urine Nitrate NEGATIVE (NEGATIVE) 05/19/17 23:50 Urine Bilirubin NEGATIVE (NEGATIVE) 05/19/17 23:50 Urine Urobilinogen 0.2 E.U./dL (0.2 - 1.0) 05/19/17 23:50 Ur Leukocyte Esterase NEGATIVE (NEGATIVE) 05/19/17 23:50 Urine RBC 0-2 /hpf (0-5) H 05/19/17 23:50 Urine WBC NONE SEEN /hpf (0-5) 05/19/17 23:50 Ur Epithelial Cells NONE SEEN /lpf (FEW) 05/19/17 23:50 Urine Bacteria NONE SEEN /hpf (NONE SEEN) 05/19/17 23:50 - Physical Exam Vitals and I&O: Vital Signs Temp 97.0 F 05/21/17 12:00 Pulse 73 05/21/17 12:00 Resp 18 05/21/17 12:00 BP 161/90 05/21/17 12:00 Pulse Ox 100 05/21/17 12:00 Intake & Output 05/20/17 05/21/17 05/21/17 18:59 06:59 18:59 Intake Total 869.159 3738.333 Balance 768.430 8362.333 Weight (lbs) 71.327 kg 71.804 kg Intake: Intake, IV Amount 622.099 5626.333 Sodium Chloride 0.9% 1, 157.249 5448.333 000 ml @ 100 mls/hr IV . Q10H [facility] Rx#:[id number] Oral 360 Other: # Voids 4 Stool Characteristics Soft Soft Active Medications: Current Medications Acetaminophen (Tylenol) 650 mg PO Q4HR PRN PRN Reason: Pain or Fever >101 Stop: 07/19/17 01:35 Al Hydrox/Mg Hydrox/Simethicone (Maalox) 30 ml PO Q4HR PRN PRN Reason: GI UPSET Stop: 07/19/17 01:35 Amlodipine Besylate (Norvasc) 5 mg PO DAILY [facility] Stop: 07/19/17 08:59 Last Admin: 05/21/17 08:51 Dose: 5 mg Calcium/Vitamin D (Oscal W/Vitamin D) 1 tab PO BID [facility] Stop: 07/20/17 11:59 Last Admin: 05/21/17 12:47 Dose: 1 tab Carbamazepine (Tegretol) 300 mg PO BID [facility] PRN Reason: Protocol Stop: 07/19/17 08:59 Clonazepam (Klonopin) 0.5 mg PO BID [facility] PRN Reason: Protocol Stop: 07/19/17 08:59 Last Admin: 05/21/17 08:52 Dose: 0.5 mg Cyanocobalamin (Vitamin B12) 1,000 mcg PO DAILY [facility] Stop: 07/19/17 08:59 Last Admin: 05/21/17 08:51 Dose: 1,000 mcg Diphenhydramine HCl (Benadryl) 25 mg PO HS [facility] Stop: 07/19/17 20:59 Last Admin: 05/20/17 20:18 Dose: 25 mg Divalproex Sodium (Depakote Er) 500 mg PO BID [facility] PRN Reason: Protocol Stop: 07/19/17 08:59 Last Admin: 05/21/17 08:52 Dose: 500 mg Ferrous Sulfate (Iron) 325 mg PO TID [facility] Stop: 07/19/17 08:59 Last Admin: 05/21/17 13:40 Dose: 325 mg Folic Acid (Folate) 1 mg PO DAILY [facility] Stop: 07/19/17 08:59 Last Admin: 05/21/17 08:52 Dose: 1 mg Guaifenesin/Dextromethorphan (Robitussin Dm) 10 ml PO Q6HR PRN PRN Reason: Cough Stop: 07/19/17 01:35 Hydroxyzine HCl (Atarax) 25 mg PO HS PRN; Protocol PRN Reason: Itching Stop: 07/19/17 01:35 Sodium Chloride (Nacl 0.9%) 1,000 mls @ 100 mls/hr IV .Q10H [facility] Stop: 07/19/17 01:34 Last Admin: 05/21/17 08:50 Dose: 100 mls/hr Ibuprofen (Motrin) 600 mg PO TID PRN PRN Reason: Pain (Moderate) Stop: 07/19/17 01:35 Lactulose (Cephulac) 20 gm PO BID PRN PRN Reason: Constipation Stop: 07/19/17 01:59 Lorazepam (Ativan) 1 mg PO BID PRN; Protocol PRN Reason: Anxiety Stop: 07/19/17 01:35 Magnesium Hydroxide (Milk Of Magnesia) 30 ml PO HS [facility] Stop: 07/19/17 20:59 Last Admin: 05/20/17 20:18 Dose: 30 ml Miscellaneous (Capecitabine [Capecitabine]) 2 tab PO BID [facility] Stop: 07/19/17 08:59 Last Admin: 05/21/17 11:03 Dose: Not Given Mometasone Furoate (Elocon 1%) 1 appl TP BID [facility] Stop: 07/19/17 08:59 Last Admin: 05/21/17 11:04 Dose: Not Given Multivitamins/Vitamin C (Theragran) 1 tab PO DAILY [facility] Stop: 07/19/17 08:59 Last Admin: 05/21/17 08:52 Dose: 1 tab Mupirocin (Bactroban Oint) 1 appl TP BID [facility] Stop: 07/19/17 08:59 Last Admin: 05/21/17 08:52 Dose: 1 appl Ondansetron HCl (Zofran Odt) 8 mg PO Q8H PRN PRN Reason: Nausea / Vomiting Stop: 07/19/17 01:59 Pantoprazole Sodium (Protonix) 40 mg PO DAILY [facility] Stop: 07/19/17 08:59 Last Admin: 05/21/17 08:51 Dose: 40 mg Capecitabine 500mg (Tab) 2 PO BID [facility] Stop: 07/19/17 10:59 Last Admin: 05/21/17 08:50 Dose: 2 Primidone (Mysoline) 50 mg PO BID [facility] Stop: 07/19/17 08:59 Last Admin: 05/21/17 08:52 Dose: 50 mg Prochlorperazine Maleate (Compazine) 10 mg PO Q8HR PRN; Protocol PRN Reason: Nausea / Vomiting Stop: 07/19/17 01:35 Tamsulosin HCl (Flomax) 0.4 mg PO HS [facility] Stop: 07/19/17 20:59 Last Admin: 05/20/17 20:18 Dose: 0.4 mg General: No acute distress HEENT: Atraumatic Cardiovascular: Regular rate, Normal S1, Normal S2 Abdomen: Bowel sounds Assessment/Plan - Problem List Patient Problems: All Active Problems Abdominal pain (Acute) R10.9 Arthritis (Acute) M19.90 Dementia (Acute) F03.90 HTN (hypertension) (Acute) I10 Hyperlipidemia (Acute) E78.5 Retroperitoneal lymphadenopathy (Acute) R59.0 h/o anemia (Acute) h/o benign prostate hyperplasia (Acute) h/o colon cancer (Acute) - Assessment Assessment: # Intermittent Abd pain # Metastatic colon cancer s/p r hemicolectomy and now with recurrence on chemotherapy Pt is not complaining of pain now, although his intermittent pain will be hard to pin down. Suspect obstipation vs cancer related pain, both hard to treat definitively. We will add miralax to his regimen and give him enema today. He may require pain management in the future as his metastatic colon cancer will no doubt progress. Plan: - con laxatives, add miralax - enema today
[2017-05-21] MEDS ORDERED: POLYETHYLENE GLYCOL 3350 17 GM PACK PO SCH (15:00)
--- NOTE | 2017-05-25 02:05 | Admit Criteria Form ---
Admit Criteria Forms - Admit Criteria Diagnosis: ABDOMINAL PAIN Clinical Indications for Admission to Inpatient Care ( kluti kaah/check or initial the applicable condition/criteria): Admission is indicated for ANY ONE of the following (1)(2)(3)(4)(5)(6): [ ]I. Surgery needed that cannot be performed on ambulatory basis [ ]II. Peritoneal signs present (eg, rebound tenderness, rigidity) [ ]III. Evaluation requires patient to not eat or drink for extended period ( eg, more than 24 hours). [X ]IV. Inpatient admission required[B] rather than observation care (see Abdominal Pain: Observation Care guideline as appropriate) because of ANY ONE of the following(7)(8)(9): [ ] a) Hemodynamic instability [ ]b) Severe pain requiring acute inpatient management [ ]c) Identification of etiology or finding that requires inpatient care (eg, aortic dissection, free air,bowel ischemia)(10) [ ]d) Absent bowel sounds with complete ileus (11) [ ]e) Signs of intestinal obstruction[C] [ ]f) Suspected toxic megacolon [ ]g) Severe electrolyte abnormalities requiring inpatient care [ ]h) High fever or infection requiring inpatient admission as indicated by ANY ONE of the following (12)(13): [ ]i) Appropriate outpatient or observation care antimicrobial treatment unavailable, not effective, or not feasible [ ]ii) Documented bacteremia [ ]iii) Temperature greater than 104.9 degrees F (40.5 degrees C) (oral) [ ]iv) Temperature greater than 103.1 degrees F (39.5 degrees C) ( oral) or less than 96.8 degrees F (36 degrees C) (rectal) that does not respond to all emergency treatment measures [ ]i) IV fluid required rather than oral rehydration to replace significant ongoing (eg, for greater than 24 hours) losses (greater than 3 L/m2 per day)(14)(15) [ ]j) Percutaneous or open drainage (eg, abscess, biliary tract) procedures [ ]k) Parenteral nutrition regimen that must be implemented on inpatient basis [X]l) Other condition, treatment, or monitoring requiring inpatient admission Extended stay beyond goal length of stay may be needed for (1)(3)(4)(10)(16): [ ]a) Surgery (e.g., colectomy, revascularization procedure) [ ]b) Persistent abdominal pain with suspected intra-abdominal process [ ]c) Diagnosed condition requiring continued stay (e.g., pancreatitis, complicated diverticulitis) The original [facility] content created by [facility] has been revised. The portions of the content which have been revised are identified through the use of italic text or in bold, and [facility] has neither reviewed nor approved the modified material.All other unmodified content is copyright [facility]. Please see references footnoted in the original [facility] edition 2017 Admit Criteria Met?: Yes
== END 2017-05-21 16:30 | disposition home or self-care (01) | DRG 392 ==
LOC: ER 22:43 → MSI 05-20 01:30
PROVIDERS: ADMIT Internal Medicine; ATTEND Internal Medicine
DX: K57.92 Diverticulitis of intestine, part unspecified, without perforation or abscess without bleeding (principal); C18.9 Malignant neoplasm of colon, unspecified; F03.90 Unspecified dementia, unspecified severity, without behavioral disturbance, psychotic disturbance, mood disturbance, and anxiety; E87.1 Hypo-osmolality and hyponatremia; I10 Essential (primary) hypertension; E86.0 Dehydration; K59.00 Constipation, unspecified; G89.3 Neoplasm related pain (acute) (chronic); N40.0 Benign prostatic hyperplasia without lower urinary tract symptoms; D64.9 Anemia, unspecified; R59.0 Localized enlarged lymph nodes; M19.90 Unspecified osteoarthritis, unspecified site; E78.5 Hyperlipidemia, unspecified; F79 Unspecified intellectual disabilities; K29.70 Gastritis, unspecified, without bleeding; Z82.49 Family history of ischemic heart disease and other diseases of the circulatory system; Z80.0 Family history of malignant neoplasm of digestive organs; Z92.21 Personal history of antineoplastic chemotherapy
CPT/HCPCS: 36415-UA; 71010-TC; 80048-TC; 80053-TC; 80061-TC; 81001-TC; 81003-TC; 82150-TC; 82550-TC; 82553; 83690-TC; 83735-TC; 83880-TC; 84443-TC; 84484-TC; 85007-TC; 85025-TC; 85027-TC; 85610-TC; 93005; 94760; 96374; J2405; J7030; Z7610

== ENCOUNTER 2017-07-12 12:35 | Inpatient (IN) | payer MEDICARE ==
[2017-07-12 13:22] LABS: % BASOPHILS 0.2 % (0.0-2.0); % EOSINOPHILS 5.6 % (0.0-5.0); % LYMPHOCYTES 24.1 % (20.0-50.0); % MONOCYTES 9.4 % (2.0-10.0); % NEUTROPHILS 60.7 % (40.0-80.0); HEMATOCRIT 33.6 % (41.0-60); HEMOGLOBIN 11.4 gm/dL (12-16); MEAN CORPUSCULAR HEMOGLOBIN 39.3 pg (26.0-30.0); MEAN CORPUSCULAR HGB CONC 33.9 pg (28.0-36.0); NEUTROPHILE ABSOLUTE 2.8 Th/cmm (1.8-8.0); PLATELET COUNT 144 Th/cmm (150-400); RED BLOOD COUNT 2.89 Mil/cmm (4.30-5.70); RED CELL DISTRIBUTION WIDTH 20.1 % (11.5-20.0); WHITE BLOOD COUNT 4.8 Th/cmm (4.8-10.8)
[2017-07-12 13:28] LABS: URINE BILIRUBIN SMALL (NEGATIVE); URINE BLOOD NEGATIVE (NEGATIVE); URINE GLUCOSE (UA) NEGATIVE (NEGATIVE); URINE KETONE TRACE mg/dL (NEGATIVE); URINE PROTEIN TRACE mg/dL (NEGATIVE)
[2017-07-12 13:31] LABS: ALB/GLOB RATIO 1.2 (1.0-1.8); ALKALINE PHOSPHATASE 54 U/L (34-104); BILIRUBIN,TOTAL 0.3 mg/dL (0.3-1.0); BUN - UREA NITROGEN 21 mg/dL (7-25); CARBON DIOXIDE 22.9 mEq/L (21.0-31.0); CHLORIDE 107 mEq/L (98-107); CREATININE - SERUM 0.7 mg/dL (0.7-1.3); GLUCOSE 129 mg/dL (70-105); POTASSIUM SERUM 3.9 mEq/L (3.5-5.1); SGOT 22 U/L (13-39); SGPT/ALT 10 U/L (7-52); SODIUM SERUM 135 mEq/L (136-145)
[2017-07-12 13:40] LABS: URINE COLOR YELLOW
[2017-07-12 13:43] LABS: URINE BACTERIA NONE SEEN /hpf (NONE SEEN); URINE EPITHELIAL CELLS NONE SEEN /lpf (FEW); URINE RBC NONE SEEN /hpf (0-5); URINE WBC NONE SEEN /hpf (0-5)
--- NOTE | 2017-07-12 13:56 | ED Physician Chart ---
ED Chief Complaint/HPI - Patient Information Date Seen:: 07/12/17 Time Seen:: 12:40 Chief Complaint:: Cough History of Present Illness:: 62 yo male who is a resident at a care facility, developed cough with congestion for a few days. He also has poor food intake for a few days. He recently fell with minor facial abrasions. He was brought to the ER for further evaluation and management. The patient is a poor historian. He was diagnosed with colon cancer and had a Port-A-Cath placed for chemotherapy. Allergies:: Allergies Allergy/AdvReac Type Severity Reaction Status Date / Time No Known Allergies Allergy Verified 12/07/16 20:15 Vitals:: Vital Signs - 8 hr 07/12/17 12:44 Temp 98.2 F HR 82 RR 16 BP 156/88 O2 Sat % 94 ED Review of Systems - Review of Systems General/Constitutional: No fever, No chills Skin: Skin lesions Head: No headache Eyes: No loss of vision ENT: No earache Neck: No neck pain Cardio Vascular: No palpitations Pulmonary: SOB, Cough, Sputum GI: No nausea, No vomiting Musculoskeletal: No bone or joint pain ED Past Medical History - Past Medical History Obtainable: No Past Medical History: Other (Dementia, BPH, colon cancer) Social History: Non Smoker, No Alcohol, No Drug Use Psychiatricy History: Depression Family Medical History - Family Member Mother History Unknown: Yes Ethnicity: Unknown Living Status: Unknown ED Physical Exam - Physical Examination General/Constitutional: Awake, Alert Other Head comments:: Healed abrasions on the left frontal and left maxillary area Eyes: PERRL, EOMI Other ENMT comments:: Dried facial skin tone Neck: Full ROM w/o pain Other Respiratory comments:: Left lung ronchi and crackles. Cardio Vascular: RRR, No murmur, gallop, rubs, NL S1 S2 GI: No tenderness/rebounding/guarding Extremities: No tenderness or effusion Other Neuro/Psych comments:: oriented to self only ED Labs/Radiology/EKG Results - Lab Results Results: Laboratory Tests 07/12/17 07/12/17 07/12/17 11:14 13:04 13:04 WBC 4.8 RBC 2.89 L Hgb 11.4 L Hct 33.6 L MCH 39.3 H MCHC Differential 33.9 RDW 20.1 H Plt Count 144 L MPV 7.0 Neutrophils % 60.7 Lymphocytes % 24.1 Monocytes % 9.4 Eosinophils % 5.6 H Basophils % 0.2 Sodium 135 L Potassium 3.9 Chloride 107 Carbon Dioxide 22.9 Anion Gap 9.0 BUN 21 Creatinine 0.7 Est GFR ( Amer) > 60.0 Est GFR (Non-Af Amer) > 60.0 BUN/Creatinine Ratio 30.0 Glucose 129 H Calcium 9.0 Total Bilirubin 0.3 AST 22 ALT 10 Alkaline Phosphatase 54 Troponin I B-Natriuretic Peptide Total Protein 6.5 Albumin 3.5 L Globulin 3.0 Albumin/Globulin Ratio 1.2 Urine Source RANDOM Urine Color YELLOW Urine Clarity CLEAR Urine pH 7.0 Ur Specific [place] 1.020 Urine Protein TRACE Urine Glucose (UA) NEGATIVE Urine Ketones TRACE Urine Blood NEGATIVE Urine Nitrate NEGATIVE Urine Bilirubin SMALL H Urine Urobilinogen 1.0 Ur Leukocyte Esterase NEGATIVE Urine RBC NONE SEEN Urine WBC NONE SEEN Ur Epithelial Cells NONE SEEN Urine Bacteria NONE SEEN 07/12/17 07/12/17 13:04 13:04 WBC RBC Hgb Hct MCH MCHC Differential RDW Plt Count MPV Neutrophils % Lymphocytes % Monocytes % Eosinophils % Basophils % Sodium Potassium Chloride Carbon Dioxide Anion Gap BUN Creatinine Est GFR ( Amer) Est GFR (Non-Af Amer) BUN/Creatinine Ratio Glucose Calcium Total Bilirubin AST ALT Alkaline Phosphatase Troponin I 0.01 B-Natriuretic Peptide 13.5 Total Protein Albumin Globulin Albumin/Globulin Ratio Urine Source Urine Color Urine Clarity Urine pH Ur Specific [place] Urine Protein Urine Glucose (UA) Urine Ketones Urine Blood Urine Nitrate Urine Bilirubin Urine Urobilinogen Ur Leukocyte Esterase Urine RBC Urine WBC Ur Epithelial Cells Urine Bacteria - Radiology Results Results: Chest X ray: increased left lung base markings ED Assessment - Assessment General Assessment: 62 yo male has possible LLL pneumonia, hyponatremia, macrocytic anemia, colon cancer, dementia and BPH. Critical Care Time: 45 min Excludes all billable procedures: Yes This condition life threatening/high prob of deterioration: No Assessment/Comments:: CBC, CMP, UA, CEA CXR EKG ED Septic Shock - . Is Septic Shock (SBP<90, OR Lactate>4 mmol\L) present?: No - <6hrs of presentation: Vital Signs: Vital Signs - 8 hr 07/12/17 12:44 Temp 98.2 F HR 82 RR 16 BP 156/88 O2 Sat % 94 ED Reassessment (Disposition) - Reassessment Reassessment Condition:: Unchanged - Patient Disposition Discharge/Transfer:: Acute Care w/in this hosp Admitting Medical Physician:: Michelet Reynolds ED Discharge Plan - Patient Disposition Admit/Discharge/Transfer: Acute Care w/in this hosp Condition at Disposition: Unchanged
--- NOTE | 2017-07-12 14:01 | Diagnostic Imaging Report ---
CHEST X-RAY: AP view INDICATION: Cough COMPARISON: Chest x-ray 05/20/2017 FINDINGS: Suboptimal lung volumes are seen with chronic lung changes increased left basal lung markings. Right-sided Port-A-Cath is seen with tip in the right atrium. Heart size is normal. Osseous structures are intact. Old left distal clavicular fracture is noted. IMPRESSION: Suboptimal lung volume increased left basal lung markings favoring subsegmental atelectasis versus scarring. Faint infiltrate is considered less likely Right Port-A-Cath again noted with tip in the right atrium.
[2017-07-12 14:13] LABS: MEAN CELL VOLUME 116.1 fl (80-99)
[2017-07-12] MEDS: Sodium Chloride 0.9% 1,000 ML IV SCH (17:01)
[2017-07-12] MEDS: cefTRIAXone 1 GM in Sodium Chloride 0.9% 50 ML IV SCH (17:03)
[2017-07-12] MEDS ORDERED: Azithromycin 500 MG in Sodium Chloride 0.9% 250 ML IV SCH (18:00)
[2017-07-12 19:46] VITALS: BP 104/77
--- NOTE | 2017-07-12 21:32 | History and Physical ---
History of Present Illness - HPI Chief Complaint: cough, s/p fall HPI: 62 year old male who is a halfway resident with a 2 day history of cough and congestion. Patient recently fell and developed a minor facial abrasion. Patient was also noted by nursing staff to have poor oral intake. Vital Signs: Last Vital Signs Temp 97.0 F 07/12/17 17:15 Pulse 74 07/12/17 17:15 Resp 20 07/12/17 17:15 BP 104/77 07/12/17 17:28 Pulse Ox 97 07/12/17 17:15 Past Medical History Cardiovascular: Report: No Pertinent Hx Pulmonary: Report: No Pertinent Hx REPAIR SERVICE CLERK: Report: No Pertinent Hx GI: Report: No Pertinent Hx Psych: Report: Other (dementia) Musculoskeletal: Report: No Pertinent Hx Rheumatologic: Report: No pertinent Hx Infectious Disease: Report: No Pertinent Hx Renal/: Report: Other (bph) Other History: colon ca Family Medical History - Family Member Mother History Unknown: Yes (noncontributory) Ethnicity: Unknown Living Status: Unknown Social History Smoke: No Alcohol: None Drugs: None Lives: [facility] - Medications Home Medications: Home Medication Medication Instructions Recorded Type Nic Cit/Mag/D3/Zn/Unattended Ground Sensor Specialist/Ever/Bor 1 each PO BID 12/07/16 History [Citracal-Vit D + Magnesium Tab] Carbamazepine [Tegretol Xr] 200 mg PO BID 12/07/16 History Cyanocobalamin [Vitamin B12] 1,000 mcg PO DAILY 12/07/16 History Diphenhydramine HCL [Benadryl] 25 mg PO HS 12/07/16 History Divalproex ER [Depakote ER] 500 mg PO BID 12/07/16 History Ferrous Sulfate [Iron] 325 mg PO TID 12/07/16 History Folic Acid [Folate*] 1 mg PO DAILY 12/07/16 History Lorazepam 1 mg PO TID 12/07/16 History Omeprazole 20 mg PO DAILY 12/07/16 History Primidone [Mysoline] 50 mg PO BID 12/07/16 History Tamsulosin [Flomax] 0.4 mg PO HS 12/07/16 History amLODIPine Besylate [Norvasc] 5 mg PO DAILY 12/07/16 History clonazePAM [klonoPIN] 0.5 mg PO BID 12/07/16 History Amoxicillin [Amoxil] 500 mg PO QID 10/23/17 History Calcium Phosphate Dibas/Vit D3 1 tab PO BID 07/12/17 History [Risacal-D 105 mg-81 mg-120 Iu] Daily-Lois 1 tab PO DAILY 07/12/17 History FLUoxetine HCL [PROzac] 10 mg PO DAILY 07/12/17 History QUEtiapine Fumarate [SEROquel] 25 mg PO TID 07/12/17 History - Allergies Allergies/Adverse Reactions: Allergies Allergy/AdvReac Type Severity Reaction Status Date / Time No Known Allergies Allergy Verified 12/07/16 20:15 Review of Systems - Review of Systems Constitutional: Report: No Significant Eyes: Report: No Significant ENT: Report: No Significant Respiratory: Report: No Significant Cardiovascular: Report: No Significant Gastrointestinal: Report: No Significant Genitourinary: Report: No Significant Skin: Report: Other (healed abrasion on left frontal maxilla ) Neurological: Report: Weakness, Confusion Physical Exam - Physical Exam HEENT: Report: Ears Nose Throat within normal limits Neck: Report: Within normal limits Cardiovascular Systems: Report: +s1/s2 noted Respiratory: Report: Breath Sounds are within normal limits Abdomen: Report: Non-tender to palpation Extremities: Report: Non-tender to palpation. Skin: Report: Warm, Dry Neuro/Psych: Report: Weakness or sensory loss noted. - Assessment Assessment: Current Active Problems Problem Status Onset COUGH AND CONGESTION Acute PNEUMONIA PROTEIN CALORIE MALNUTRITION DEMENTIA HX COLON CA s/p fall - Plan Plan: iv rocephin ID consult cbc/bmp in am fall precautions continue current orders
[2017-07-13] MEDS: Sodium Chloride 0.9% 1,000 ML IV SCH (03:10)
[2017-07-13 06:11] LABS: % BASOPHILS 0.2 % (0.0-2.0); % EOSINOPHILS 5.8 % (0.0-5.0); % MONOCYTES 6.9 % (2.0-10.0); % NEUTROPHILS 62.1 % (40.0-80.0); HEMATOCRIT 33.2 % (41.0-60); HEMOGLOBIN 11.3 gm/dL (12-16); MEAN CORPUSCULAR HEMOGLOBIN 39.4 pg (26.0-30.0); MEAN CORPUSCULAR HGB CONC 34.1 pg (28.0-36.0); MEAN PLATELET VOLUME 7.1 fl; NEUTROPHILE ABSOLUTE 3.1 Th/cmm (1.8-8.0); PLATELET COUNT 159 Th/cmm (150-400); RED BLOOD COUNT 2.87 Mil/cmm (4.30-5.70); RED CELL DISTRIBUTION WIDTH 20.3 % (11.5-20.0); WHITE BLOOD COUNT 5.1 Th/cmm (4.8-10.8)
[2017-07-13 06:26] LABS: ALB/GLOB RATIO 1.1 (1.0-1.8); ALKALINE PHOSPHATASE 45 U/L (34-104); BILIRUBIN,TOTAL 0.4 mg/dL (0.3-1.0); BUN - UREA NITROGEN 19 mg/dL (7-25); BUN/CREATININE RATIO 27.1; CALCIUM SERUM 8.6 mg/dL (8.6-10.3); CHLORIDE 109 mEq/L (98-107); CHOLESTEROL 138 mg/dL (<200); CREATININE - SERUM 0.7 mg/dL (0.7-1.3); GLUCOSE 123 mg/dL (70-105); SGOT 22 U/L (13-39); SGPT/ALT 9 U/L (7-52); SODIUM SERUM 138 mEq/L (136-145); TRIGLYCERIDES 114 mg/dL (<150)
[2017-07-13 07:33] LABS: MEAN CELL VOLUME 115.6 fl (80-99)
[2017-07-13] MEDS: Ferrous Sulfate 325 MG TAB PO SCH ×3 (08:40→20:56)
[2017-07-13] MEDS: Multivitamin Tab PO SCH (08:42)
[2017-07-13] MEDS: Calcium Carb/Vit D 500 mg/200 U Tab PO SCH ×2 (08:42→16:46)
[2017-07-13] MEDS: Pantoprazole 40 mg EC Tab PO SCH (08:42)
[2017-07-13] MEDS: cefTRIAXone 1 GM in Sodium Chloride 0.9% 50 ML IV SCH (08:42)
--- NOTE | 2017-07-13 08:50 | General Progress Note ---
Subjective - Review of Systems Events since last encounter: correction resident c/o cough and congestion s/p fall minor facial abrasion. poor oral intake. Objective - Results Result Diagrams: 07/13/17 05:20 07/13/17 05:20 Recent Labs: Laboratory Last Values WBC 5.1 Th/cmm (4.8-10.8) 07/13/17 05:20 RBC 2.87 Mil/cmm (4.30-5.70) L 07/13/17 05:20 Hgb 11.3 gm/dL (12-16) L 07/13/17 05:20 Hct 33.2 % (41.0-60) L 07/13/17 05:20 MCV 115.6 fl (80-99) H 07/13/17 05:20 MCH 39.4 pg (26.0-30.0) H 07/13/17 05:20 MCHC Differential 34.1 pg (28.0-36.0) 07/13/17 05:20 RDW 20.3 % (11.5-20.0) H 07/13/17 05:20 Plt Count 159 Th/cmm (150-400) 07/13/17 05:20 MPV 7.1 fl 07/13/17 05:20 Neutrophils % 62.1 % (40.0-80.0) 07/13/17 05:20 Lymphocytes % 25.0 % (20.0-50.0) 07/13/17 05:20 Monocytes % 6.9 % (2.0-10.0) 07/13/17 05:20 Eosinophils % 5.8 % (0.0-5.0) H 07/13/17 05:20 Basophils % 0.2 % (0.0-2.0) 07/13/17 05:20 Sodium 138 mEq/L (136-145) 07/13/17 05:20 Potassium 4.0 mEq/L (3.5-5.1) 07/13/17 05:20 Chloride 109 mEq/L (98-107) H 07/13/17 05:20 Carbon Dioxide 23.0 mEq/L (21.0-31.0) 07/13/17 05:20 Anion Gap 10.0 (7.0-16.0) 07/13/17 05:20 BUN 19 mg/dL (7-25) 07/13/17 05:20 Creatinine 0.7 mg/dL (0.7-1.3) 07/13/17 05:20 Est GFR ( Amer) > 60.0 ml/min (>90) 07/13/17 05:20 Est GFR (Non-Af Amer) > 60.0 ml/min 07/13/17 05:20 BUN/Creatinine Ratio 27.1 07/13/17 05:20 Glucose 123 mg/dL (70-105) H 07/13/17 05:20 Calcium 8.6 mg/dL (8.6-10.3) 07/13/17 05:20 Total Bilirubin 0.4 mg/dL (0.3-1.0) 07/13/17 05:20 AST 22 U/L (13-39) 07/13/17 05:20 ALT 9 U/L (7-52) 07/13/17 05:20 Alkaline Phosphatase 45 U/L (34-104) 07/13/17 05:20 Troponin I 0.01 ng/mL (0.01-0.05) 07/12/17 13:04 B-Natriuretic Peptide 13.5 pg/mL (5.0-100.0) 07/12/17 13:04 Total Protein 6.4 gm/dL (6.0-8.3) 07/13/17 05:20 Albumin 3.3 gm/dL (4.2-5.5) L 07/13/17 05:20 Globulin 3.1 gm/dL 07/13/17 05:20 Albumin/Globulin Ratio 1.1 (1.0-1.8) 07/13/17 05:20 Triglycerides 114 mg/dL (<150) 07/13/17 05:20 Cholesterol 138 mg/dL (<200) 07/13/17 05:20 LDL Cholesterol Direct 64 mg/dL (75-193) L 07/13/17 05:20 HDL Cholesterol 52 mg/dL (23-92) 07/13/17 05:20 TSH 3.21 uIU/ml (0.34-5.60) 07/13/17 05:20 Urine Source RANDOM 07/12/17 11:14 Urine Color YELLOW 07/12/17 11:14 Urine Clarity CLEAR (CLEAR) 07/12/17 11:14 Urine pH 7.0 (4.6 - 8.0) 07/12/17 11:14 Ur Specific [place] 1.020 (1.005-1.030) 07/12/17 11:14 Urine Protein TRACE mg/dL (NEGATIVE) 07/12/17 11:14 Urine Glucose (UA) NEGATIVE mg/dL (NEGATIVE) 07/12/17 11:14 Urine Ketones TRACE mg/dL (NEGATIVE) 07/12/17 11:14 Urine Blood NEGATIVE (NEGATIVE) 07/12/17 11:14 Urine Nitrate NEGATIVE (NEGATIVE) 07/12/17 11:14 Urine Bilirubin SMALL (NEGATIVE) H 07/12/17 11:14 Urine Urobilinogen 1.0 E.U./dL (0.2 - 1.0) 07/12/17 11:14 Ur Leukocyte Esterase NEGATIVE (NEGATIVE) 07/12/17 11:14 Urine RBC NONE SEEN /hpf (0-5) 07/12/17 11:14 Urine WBC NONE SEEN /hpf (0-5) 07/12/17 11:14 Ur Epithelial Cells NONE SEEN /lpf (FEW) 07/12/17 11:14 Urine Bacteria NONE SEEN /hpf (NONE SEEN) 07/12/17 11:14 - Physical Exam Vitals and I&O: Vital Signs Temp 98 F 07/13/17 05:54 Pulse 78 07/13/17 08:41 Resp 18 07/13/17 05:54 BP 136/78 07/13/17 08:41 Pulse Ox 96 07/13/17 05:54 Intake & Output 07/12/17 07/13/17 07/13/17 18:59 06:59 18:59 Intake Total 297.500 856.667 Balance 297.500 856.667 Weight (lbs) 71.668 kg 71.668 kg Intake: Intake, IV Amount 297.500 856.667 Azithromycin 500 mg In 104.167 Sodium Chloride 0.9% 250 ml @ 250 mls/hr IV Q24HR [facility] Rx#:[id number] Sodium Chloride 0.9% 1, 143.333 856.667 000 ml @ 100 mls/hr IV . Q10H [facility] Rx#:[id number] cefTRIAXone 1 gm In 50 Sodium Chloride 0.9% 50 ml @ 100 mls/hr IV Q24HR@ 0900 [facility] Rx#:[id number] Other: # Voids 1 Active Medications: Current Medications Amlodipine Besylate (Norvasc) 5 mg PO DAILY [facility] Stop: 09/11/17 08:59 Last Admin: 07/13/17 08:41 Dose: 5 mg Calcium/Vitamin D (Oscal W/Vitamin D) 1 tab PO BID [facility] Stop: 09/11/17 08:59 Last Admin: 07/13/17 08:42 Dose: 1 tab Carbamazepine (Tegretol) 200 mg PO BID [facility] Stop: 09/11/17 08:59 Last Admin: 07/13/17 08:42 Dose: 200 mg Clonazepam (Klonopin) 0.5 mg PO BID [facility] PRN Reason: Protocol Stop: 09/11/17 08:59 Diphenhydramine HCl (Benadryl) 25 mg PO HS [facility] Stop: 09/11/17 20:59 Divalproex Sodium (Depakote Er) 500 mg PO BID [facility] PRN Reason: Protocol Stop: 09/11/17 08:59 Ferrous Sulfate (Iron) 325 mg PO TID [facility] Stop: 09/11/17 08:59 Last Admin: 07/13/17 08:40 Dose: 325 mg Fluoxetine HCl (Prozac) 10 mg PO DAILY [facility] PRN Reason: Protocol Stop: 09/11/17 08:59 Folic Acid (Folate) 1 mg PO DAILY [facility] Stop: 09/11/17 08:59 Last Admin: 07/13/17 08:40 Dose: 1 mg Azithromycin 500 mg/ Sodium (Chloride) 250 mls @ 250 mls/hr IV Q24HR [facility] Stop: 09/10/17 17:59 Last Infusion: 07/12/17 18:27 Dose: 250 mls/hr Ceftriaxone Sodium 1 gm/ (Sodium Chloride) 50 mls @ 100 mls/hr IV Q24HR@0900 [facility] Stop: 09/10/17 16:59 Last Admin: 07/13/17 08:42 Dose: 100 mls/hr Sodium Chloride (Nacl 0.9%) 1,000 mls @ 100 mls/hr IV .Q10H [facility] Stop: 09/10/17 16:23 Last Admin: 07/13/17 03:10 Dose: 100 mls/hr Lorazepam (Ativan) 1 mg PO TID [facility] PRN Reason: Protocol Stop: 09/11/17 08:59 Miscellaneous (Nic Cit/Mag/D3/Zn/Deli Manager/Ever/Bor [Citracal-Vit D + Magnesium Tab]) 1 each PO BID [facility] Stop: 09/11/17 08:59 Multivitamins/Vitamin C (Theragran) 1 tab PO DAILY [facility] Stop: 09/11/17 08:59 Last Admin: 07/13/17 08:42 Dose: 1 tab Pantoprazole Sodium (Protonix) 40 mg PO DAILY [facility] Stop: 09/11/17 08:59 Last Admin: 07/13/17 08:42 Dose: 40 mg Primidone (Mysoline) 50 mg PO BID [facility] Stop: 09/11/17 08:59 Last Admin: 07/13/17 08:42 Dose: 50 mg Quetiapine Fumarate (Seroquel) 25 mg PO TID [facility] PRN Reason: Protocol Stop: 09/11/17 08:59 Tamsulosin HCl (Flomax) 0.4 mg PO HS [facility] Stop: 09/11/17 20:59 General: No acute distress HEENT: Atraumatic, PERRLA Neck: Supple, JVD Cardiovascular: Regular rate Lungs: Clear to auscultation Abdomen: Bowel sounds Assessment/Plan - Problem List Patient Problems: All Active Problems COUGH AND CONGESTION (Acute) Abdominal pain (Acute) R10.9 Arthritis (Acute) M19.90 Dementia (Acute) F03.90 HTN (hypertension) (Acute) I10 Hyperlipidemia (Acute) E78.5 Retroperitoneal lymphadenopathy (Acute) R59.0 h/o anemia (Acute) h/o benign prostate hyperplasia (Acute) h/o colon cancer (Acute) - Assessment Assessment: Current Active Problems Problem Status Onset COUGH AND CONGESTION Acute PNEUMONIA PROTEIN CALORIE MALNUTRITION DEMENTIA HX COLON CA s/p fall - Plan Plan: iv rocephin ID consult cbc/bmp in am fall precautions continue current orders
[2017-07-13] MEDS ORDERED: [UNRECOGNIZED DRUG - OTHER] PO SCH (09:00)
--- NOTE | 2017-07-13 11:04 | Consultation ---
Consult Note - Consult Note Service Date: 07/13/17 Referring Physician: Michelet Reynolds Consult Note: PHYSICIAN Consultation Note: Date of Admission: 07/12/17 Purpose of Consultation: Pneumonia. Chief Complaint: Patient VAN MARTINEZ was admitted to location [facility] I with BRONCHITIS. History of Present Illness: Patient is 62 year male admitted to the hospital for cough and congestion. There is no fever, no chills. on initial evaluation, his temperature was 98.2 degree F and wbc count was 4,800. CXR reported atelectasis versus infiltrates. Rocephin was started and ID consultation was called for further antibiotic management. Past Medical History: H/o colon ca, anemia, protein calorie malnutrition. Dementia. Diagnoses MALIGNANT NEOPLASM OF COLON, UNSPECIFIED (07/12/17) ANEMIA, UNSPECIFIED (07/12/17) UNSPECIFIED PROTEIN-CALORIE MALNUTRITION (07/12/17) HYPO-OSMOLALITY AND HYPONATREMIA (07/12/17) UNSPECIFIED DEMENTIA WITHOUT BEHAVIORAL DISTURBANCE (07/12/17) PNEUMONIA, UNSPECIFIED ORGANISM (07/12/17) UNSPECIFIED FALL, INITIAL ENCOUNTER (07/12/17) Allergies Allergy/AdvReac Type Severity Reaction Status Date / Time No Known Allergies Allergy Verified 12/07/16 20:15 Vital Signs Temp 97.3 F 07/13/17 08:00 Pulse 78 07/13/17 08:41 Resp 18 07/13/17 08:00 BP 136/78 07/13/17 08:41 Pulse Ox 95 07/13/17 08:00 Intake & Output 07/12/17 07/13/17 07/13/17 18:59 06:59 18:59 Intake Total 297.500 856.667 Balance 297.500 856.667 Weight (lbs) 71.668 kg 71.668 kg Intake: Intake, IV Amount 297.500 856.667 Azithromycin 500 mg In 104.167 Sodium Chloride 0.9% 250 ml @ 250 mls/hr IV Q24HR JALEN Rx#:[id number] Sodium Chloride 0.9% 1, 143.333 856.667 000 ml @ 100 mls/hr IV . Q10H JALEN Rx#:[id number] cefTRIAXone 1 gm In 50 Sodium Chloride 0.9% 50 ml @ 100 mls/hr IV Q24HR@ 0900 JALEN Rx#:[id number] Other: # Voids 1 Laboratory Results - last 24 hr 07/13/17 07/13/17 07/13/17 05:20 05:20 05:20 WBC 5.1 RBC 2.87 L Hgb 11.3 L Hct 33.2 L MCV 115.6 H MCH 39.4 H MCHC Differential 34.1 RDW 20.3 H Plt Count 159 MPV 7.1 Neutrophils % 62.1 Lymphocytes % 25.0 Monocytes % 6.9 Eosinophils % 5.8 H Basophils % 0.2 Sodium 138 Potassium 4.0 Chloride 109 H Carbon Dioxide 23.0 Anion Gap 10.0 BUN 19 Creatinine 0.7 Est GFR ( Amer) > 60.0 Est GFR (Non-Af Amer) > 60.0 BUN/Creatinine Ratio 27.1 Glucose 123 H Calcium 8.6 Total Bilirubin 0.4 AST 22 ALT 9 Alkaline Phosphatase 45 Total Protein 6.4 Albumin 3.3 L Globulin 3.1 Albumin/Globulin Ratio 1.1 Triglycerides 114 Cholesterol 138 LDL Cholesterol Direct 64 L HDL Cholesterol 52 TSH 3.21 Home Medication Medication Instructions Recorded Type Nic Cit/Mag/D3/Zn/Clinical Account Executive/Ever/Bor 1 each PO BID 12/07/16 History [Citracal-Vit D + Magnesium Tab] Carbamazepine [Tegretol Xr] 200 mg PO BID 12/07/16 History Cyanocobalamin [Vitamin B12] 1,000 mcg PO DAILY 12/07/16 History Diphenhydramine HCL [Benadryl] 25 mg PO HS 12/07/16 History Divalproex ER [Depakote ER] 500 mg PO BID 12/07/16 History Ferrous Sulfate [Iron] 325 mg PO TID 12/07/16 History Folic Acid [Folate*] 1 mg PO DAILY 12/07/16 History Lorazepam 1 mg PO TID 12/07/16 History Omeprazole 20 mg PO DAILY 12/07/16 History Primidone [Mysoline] 50 mg PO BID 12/07/16 History Tamsulosin [Flomax] 0.4 mg PO HS 12/07/16 History amLODIPine Besylate [Norvasc] 5 mg PO DAILY 12/07/16 History clonazePAM [klonoPIN] 0.5 mg PO BID 12/07/16 History Amoxicillin [Amoxil] 500 mg PO QID 07/12/17 History Calcium Phosphate Dibas/Vit D3 1 tab PO BID 07/12/17 History [Risacal-D 105 mg-81 mg-120 Iu] Daily-Lois 1 tab PO DAILY 07/12/17 History FLUoxetine HCL [PROzac] 10 mg PO DAILY 07/12/17 History QUEtiapine Fumarate [SEROquel] 25 mg PO TID 07/12/17 History Current Medications Generic Name Dose Route Start Last Admin Trade Name Yoly PRN Reason Stop Dose Admin Amlodipine Besylate 5 mg 07/13/17 09:00 07/13/17 08:41 Norvasc PO 09/11/17 08:59 5 mg DAILY JALEN Administration Calcium/Vitamin D 1 tab 07/13/17 09:00 07/13/17 08:42 Oscal W/Vitamin D PO 09/11/17 08:59 1 tab BID JALEN Administration Carbamazepine 200 mg 07/13/17 09:00 07/13/17 08:42 Tegretol PO 09/11/17 08:59 200 mg BID JALEN Administration Clonazepam 0.5 mg 07/13/17 09:00 Klonopin PO 09/11/17 08:59 BID JALEN Protocol Diphenhydramine HCl 25 mg 07/13/17 21:00 Benadryl PO 09/11/17 20:59 HS JALEN Divalproex Sodium 500 mg 07/13/17 09:00 Depakote Er PO 09/11/17 08:59 BID JALEN Protocol Ferrous Sulfate 325 mg 07/13/17 09:00 07/13/17 08:40 Iron PO 09/11/17 08:59 325 mg TID JALEN Administration Fluoxetine HCl 10 mg 07/13/17 09:00 Prozac PO 09/11/17 08:59 DAILY JALEN Protocol Folic Acid 1 mg 07/13/17 09:00 07/13/17 08:40 Folate PO 09/11/17 08:59 1 mg DAILY JALEN Administration Azithromycin 500 mg/ Sodium 250 mls @ 250 mls/hr 07/12/17 18:00 07/12/17 18: 27 Chloride IV 09/10/17 17:59 250 mls/hr Q24HR JALEN Infusion Ceftriaxone Sodium 1 gm/ 50 mls @ 100 mls/hr 07/12/17 17:00 07/13/17 08:42 Sodium Chloride IV 09/10/17 16:59 100 mls/hr Q24HR@0900 JALEN Administration Sodium Chloride 1,000 mls @ 100 mls/hr 07/12/17 16:24 07/13/17 03:10 Nacl 0.9% IV 09/10/17 16:23 100 mls/hr .Q10H JALEN Administration Lorazepam 1 mg 07/13/17 09:00 Ativan PO 09/11/17 08:59 TID JALEN Protocol Miscellaneous 1 each 07/13/17 09:00 Nic Cit/Mag/D3/Zn/Clinical Account Executive/Ever/Bor [Citracal-Vit D + Magnesium Tab] PO 09/11/17 08:59 BID JALEN Multivitamins/Vitamin C 1 tab 07/13/17 09:00 07/13/17 08:42 Theragran PO 09/11/17 08:59 1 tab DAILY JALEN Administration Pantoprazole Sodium 40 mg 07/13/17 09:00 07/13/17 08:42 Protonix PO 09/11/17 08:59 40 mg DAILY JALEN Administration Primidone 50 mg 07/13/17 09:00 07/13/17 08:42 Mysoline PO 09/11/17 08:59 50 mg BID JALEN Administration Quetiapine Fumarate 25 mg 07/13/17 09:00 Seroquel PO 09/11/17 08:59 TID [facility] Protocol Tamsulosin HCl 0.4 mg 07/13/17 21:00 Flomax PO 09/11/17 20:59 HS JALEN Review of Systems: A 12 point ROS was reviewed with the pertinent positive and negatives noted in the HPI. Social History Lives at [facility]. Smoking Status Never smoker Drug Use No Alcohol Use No Family Medical History History Unknown Physical Exam: General: Comfortable, not in acute distress. HEENT: Head: Normocephalic, atraumatic. Face: Symmetrical. Oral cavity: moist, pink tongue. Eyes: Pallor +, No icterus. Pupil PERRLA. Neck: Supple, no JVD, no carotid bruit. No use of accessory neck muscles. Cardio: S1 and S2 WNL. Respiratory: Vesicular breath sounds, occasional rhonchi. Abdominal: Soft NT ND BS present. Genital/Urinary: deferred. Extremities: NCCE, pulses are palpable in all four limbs. Neurological: AAOx3. No focal deficit. bed ridden. Assessment: 1. Early pneumonia. 2. Dementia. 3. H/o colon CA. 4. Anemia. Plan: Change Rocephin to Levaquin, check Influenza screen, sputum c/s. Thank you, Dr Reynolds for involving me in taking care of Mr Echeverria. Hans Hernandez Devesh N., M.D. [id number]
[2017-07-13] MEDS: Levofloxacin 500mg/100mL 500 MG/100 ML BAG IV SCH (14:15)
--- NOTE | 2017-07-14 08:43 | General Progress Note ---
Subjective - Review of Systems Events since last encounter: no acute distress Objective - Results Result Diagrams: 07/13/17 05:20 07/13/17 05:20 Recent Labs: Laboratory Last Values WBC 5.1 Th/cmm (4.8-10.8) 07/13/17 05:20 RBC 2.87 Mil/cmm (4.30-5.70) L 07/13/17 05:20 Hgb 11.3 gm/dL (12-16) L 07/13/17 05:20 Hct 33.2 % (41.0-60) L 07/13/17 05:20 MCV 115.6 fl (80-99) H 07/13/17 05:20 MCH 39.4 pg (26.0-30.0) H 07/13/17 05:20 MCHC Differential 34.1 pg (28.0-36.0) 07/13/17 05:20 RDW 20.3 % (11.5-20.0) H 07/13/17 05:20 Plt Count 159 Th/cmm (150-400) 07/13/17 05:20 MPV 7.1 fl 07/13/17 05:20 Neutrophils % 62.1 % (40.0-80.0) 07/13/17 05:20 Lymphocytes % 25.0 % (20.0-50.0) 07/13/17 05:20 Monocytes % 6.9 % (2.0-10.0) 07/13/17 05:20 Eosinophils % 5.8 % (0.0-5.0) H 07/13/17 05:20 Basophils % 0.2 % (0.0-2.0) 07/13/17 05:20 Sodium 138 mEq/L (136-145) 07/13/17 05:20 Potassium 4.0 mEq/L (3.5-5.1) 07/13/17 05:20 Chloride 109 mEq/L (98-107) H 07/13/17 05:20 Carbon Dioxide 23.0 mEq/L (21.0-31.0) 07/13/17 05:20 Anion Gap 10.0 (7.0-16.0) 07/13/17 05:20 BUN 19 mg/dL (7-25) 07/13/17 05:20 Creatinine 0.7 mg/dL (0.7-1.3) 07/13/17 05:20 Est GFR ( Amer) > 60.0 ml/min (>90) 07/13/17 05:20 Est GFR (Non-Af Amer) > 60.0 ml/min 07/13/17 05:20 BUN/Creatinine Ratio 27.1 07/13/17 05:20 Glucose 123 mg/dL (70-105) H 07/13/17 05:20 Calcium 8.6 mg/dL (8.6-10.3) 07/13/17 05:20 Total Bilirubin 0.4 mg/dL (0.3-1.0) 07/13/17 05:20 AST 22 U/L (13-39) 07/13/17 05:20 ALT 9 U/L (7-52) 07/13/17 05:20 Alkaline Phosphatase 45 U/L (34-104) 07/13/17 05:20 Troponin I 0.01 ng/mL (0.01-0.05) 07/12/17 13:04 B-Natriuretic Peptide 13.5 pg/mL (5.0-100.0) 07/12/17 13:04 Total Protein 6.4 gm/dL (6.0-8.3) 07/13/17 05:20 Albumin 3.3 gm/dL (4.2-5.5) L 07/13/17 05:20 Globulin 3.1 gm/dL 07/13/17 05:20 Albumin/Globulin Ratio 1.1 (1.0-1.8) 07/13/17 05:20 Triglycerides 114 mg/dL (<150) 07/13/17 05:20 Cholesterol 138 mg/dL (<200) 07/13/17 05:20 LDL Cholesterol Direct 64 mg/dL (75-193) L 07/13/17 05:20 HDL Cholesterol 52 mg/dL (23-92) 07/13/17 05:20 Carcinoembryonic Ag 47.4 ng/mL (0.0-4.7) H 07/12/17 13:04 TSH 3.21 uIU/ml (0.34-5.60) 07/13/17 05:20 Urine Source RANDOM 07/12/17 11:14 Urine Color YELLOW 07/12/17 11:14 Urine Clarity CLEAR (CLEAR) 07/12/17 11:14 Urine pH 7.0 (4.6 - 8.0) 07/12/17 11:14 Ur Specific [place] 1.020 (1.005-1.030) 07/12/17 11:14 Urine Protein TRACE mg/dL (NEGATIVE) 07/12/17 11:14 Urine Glucose (UA) NEGATIVE mg/dL (NEGATIVE) 07/12/17 11:14 Urine Ketones TRACE mg/dL (NEGATIVE) 07/12/17 11:14 Urine Blood NEGATIVE (NEGATIVE) 07/12/17 11:14 Urine Nitrate NEGATIVE (NEGATIVE) 07/12/17 11:14 Urine Bilirubin SMALL (NEGATIVE) H 07/12/17 11:14 Urine Urobilinogen 1.0 E.U./dL (0.2 - 1.0) 07/12/17 11:14 Ur Leukocyte Esterase NEGATIVE (NEGATIVE) 07/12/17 11:14 Urine RBC NONE SEEN /hpf (0-5) 07/12/17 11:14 Urine WBC NONE SEEN /hpf (0-5) 07/12/17 11:14 Ur Epithelial Cells NONE SEEN /lpf (FEW) 07/12/17 11:14 Urine Bacteria NONE SEEN /hpf (NONE SEEN) 07/12/17 11:14 - Physical Exam Vitals and I&O: Vital Signs Temp 98.7 F 07/14/17 04:00 Pulse 82 07/14/17 04:00 Resp 19 07/14/17 04:00 BP 137/74 07/14/17 04:00 Pulse Ox 95 07/14/17 04:00 Intake & Output 07/13/17 07/14/17 07/14/17 18:59 06:59 18:59 Intake Total 850 500 Output Total 1 0 Balance 849 500 Weight (lbs) 71.668 kg 73.17 kg Intake: Oral 850 500 Output: Stool 1 0 Other: # Voids 4 3 # Bowel Movements 0 Active Medications: Current Medications Amlodipine Besylate (Norvasc) 5 mg PO DAILY JALEN Stop: 09/11/17 08:59 Last Admin: 07/13/17 08:41 Dose: 5 mg Calcium/Vitamin D (Oscal W/Vitamin D) 1 tab PO BID JALEN Stop: 09/11/17 08:59 Last Admin: 07/13/17 16:46 Dose: 1 tab Carbamazepine (Tegretol) 200 mg PO BID JALEN Stop: 09/11/17 08:59 Last Admin: 07/13/17 16:46 Dose: 200 mg Clonazepam (Klonopin) 0.5 mg PO BID JALEN PRN Reason: Protocol Stop: 09/11/17 08:59 Diphenhydramine HCl (Benadryl) 25 mg PO HS JALEN Stop: 09/11/17 20:59 Last Admin: 07/13/17 20:56 Dose: 25 mg Divalproex Sodium (Depakote Er) 500 mg PO BID JALEN PRN Reason: Protocol Stop: 09/11/17 19:14 Ferrous Sulfate (Iron) 325 mg PO TID JALEN Stop: 09/11/17 08:59 Last Admin: 07/13/17 20:56 Dose: 325 mg Fluoxetine HCl (Prozac) 10 mg PO DAILY JALEN PRN Reason: Protocol Stop: 09/11/17 08:59 Folic Acid (Folate) 1 mg PO DAILY JALEN Stop: 09/11/17 08:59 Last Admin: 07/13/17 08:40 Dose: 1 mg Sodium Chloride (Nacl 0.9%) 1,000 mls @ 100 mls/hr IV .Q10H JALEN Stop: 09/10/17 16:23 Last Admin: 07/13/17 03:10 Dose: 100 mls/hr Levofloxacin (Levaquin Pb) 500 mg in 100 mls @ 100 mls/hr IV Q24HR JALEN Stop: 09/11/17 12:59 Last Admin: 07/13/17 14:15 Dose: 100 mls/hr Lorazepam (Ativan) 1 mg PO TID JALEN PRN Reason: Protocol Stop: 09/11/17 08:59 Last Admin: 07/13/17 20:55 Dose: 1 mg Miscellaneous (Nic Cit/Mag/D3/Zn/Tankage Supervisor/Ever/Bor [Citracal-Vit D + Magnesium Tab]) 1 each PO BID JALEN Stop: 09/11/17 08:59 Multivitamins/Vitamin C (Theragran) 1 tab PO DAILY JALEN Stop: 09/11/17 08:59 Last Admin: 07/13/17 08:42 Dose: 1 tab Pantoprazole Sodium (Protonix) 40 mg PO DAILY JALEN Stop: 09/11/17 08:59 Last Admin: 07/13/17 08:42 Dose: 40 mg Primidone (Mysoline) 50 mg PO BID JALEN Stop: 09/11/17 08:59 Last Admin: 07/13/17 16:46 Dose: 50 mg Quetiapine Fumarate (Seroquel) 25 mg PO TID JALEN PRN Reason: Protocol Stop: 09/11/17 08:59 Last Admin: 07/13/17 20:56 Dose: 25 mg Tamsulosin HCl (Flomax) 0.4 mg PO HS JALEN Stop: 09/11/17 20:59 Last Admin: 07/13/17 20:55 Dose: 0.4 mg General: No acute distress HEENT: Atraumatic, PERRLA Neck: Supple, JVD Cardiovascular: Regular rate Lungs: Clear to auscultation Abdomen: Bowel sounds Assessment/Plan - Problem List Patient Problems: All Active Problems COUGH AND CONGESTION (Acute) Abdominal pain (Acute) R10.9 Arthritis (Acute) M19.90 Dementia (Acute) F03.90 HTN (hypertension) (Acute) I10 Hyperlipidemia (Acute) E78.5 Retroperitoneal lymphadenopathy (Acute) R59.0 h/o anemia (Acute) h/o benign prostate hyperplasia (Acute) h/o colon cancer (Acute) - Assessment Assessment: Current Active Problems Problem Status Onset COUGH AND CONGESTION Acute PNEUMONIA PROTEIN CALORIE MALNUTRITION DEMENTIA HX COLON CA s/p fall - Plan Plan: iv rocephin ID consult cbc/bmp in am fall precautions continue current orders
[2017-07-14] MEDS: Pantoprazole 40 mg EC Tab PO SCH (10:12)
[2017-07-14] MEDS: Multivitamin Tab PO SCH (10:13)
[2017-07-14] MEDS: Calcium Carb/Vit D 500 mg/200 U Tab PO SCH ×2 (10:13→17:29)
[2017-07-14] MEDS: Ferrous Sulfate 325 MG TAB PO SCH ×3 (10:14→20:20)
--- NOTE | 2017-07-14 13:48 | Infectious Disease Prog Note ---
Infectious Disease Subjective - Review of Systems Service Date: 07/14/17 Subjective: There is no new change. Infectious Disease Objective - Results Result Diagrams: 07/13/17 05:20 07/13/17 05:20 Recent Labs: Laboratory Last Values WBC 5.1 Th/cmm (4.8-10.8) 07/13/17 05:20 RBC 2.87 Mil/cmm (4.30-5.70) L 07/13/17 05:20 Hgb 11.3 gm/dL (12-16) L 07/13/17 05:20 Hct 33.2 % (41.0-60) L 07/13/17 05:20 MCV 115.6 fl (80-99) H 07/13/17 05:20 MCH 39.4 pg (26.0-30.0) H 07/13/17 05:20 MCHC Differential 34.1 pg (28.0-36.0) 07/13/17 05:20 RDW 20.3 % (11.5-20.0) H 07/13/17 05:20 Plt Count 159 Th/cmm (150-400) 07/13/17 05:20 MPV 7.1 fl 07/13/17 05:20 Neutrophils % 62.1 % (40.0-80.0) 07/13/17 05:20 Lymphocytes % 25.0 % (20.0-50.0) 07/13/17 05:20 Monocytes % 6.9 % (2.0-10.0) 07/13/17 05:20 Eosinophils % 5.8 % (0.0-5.0) H 07/13/17 05:20 Basophils % 0.2 % (0.0-2.0) 07/13/17 05:20 Sodium 138 mEq/L (136-145) 07/13/17 05:20 Potassium 4.0 mEq/L (3.5-5.1) 07/13/17 05:20 Chloride 109 mEq/L (98-107) H 07/13/17 05:20 Carbon Dioxide 23.0 mEq/L (21.0-31.0) 07/13/17 05:20 Anion Gap 10.0 (7.0-16.0) 07/13/17 05:20 BUN 19 mg/dL (7-25) 07/13/17 05:20 Creatinine 0.7 mg/dL (0.7-1.3) 07/13/17 05:20 Est GFR ( Amer) > 60.0 ml/min (>90) 07/13/17 05:20 Est GFR (Non-Af Amer) > 60.0 ml/min 07/13/17 05:20 BUN/Creatinine Ratio 27.1 07/13/17 05:20 Glucose 123 mg/dL (70-105) H 07/13/17 05:20 Calcium 8.6 mg/dL (8.6-10.3) 07/13/17 05:20 Total Bilirubin 0.4 mg/dL (0.3-1.0) 07/13/17 05:20 AST 22 U/L (13-39) 07/13/17 05:20 ALT 9 U/L (7-52) 07/13/17 05:20 Alkaline Phosphatase 45 U/L (34-104) 07/13/17 05:20 Troponin I 0.01 ng/mL (0.01-0.05) 07/12/17 13:04 B-Natriuretic Peptide 13.5 pg/mL (5.0-100.0) 07/12/17 13:04 Total Protein 6.4 gm/dL (6.0-8.3) 07/13/17 05:20 Albumin 3.3 gm/dL (4.2-5.5) L 07/13/17 05:20 Globulin 3.1 gm/dL 07/13/17 05:20 Albumin/Globulin Ratio 1.1 (1.0-1.8) 07/13/17 05:20 Triglycerides 114 mg/dL (<150) 07/13/17 05:20 Cholesterol 138 mg/dL (<200) 07/13/17 05:20 LDL Cholesterol Direct 64 mg/dL (75-193) L 07/13/17 05:20 HDL Cholesterol 52 mg/dL (23-92) 07/13/17 05:20 Carcinoembryonic Ag 47.4 ng/mL (0.0-4.7) H 07/12/17 13:04 TSH 3.21 uIU/ml (0.34-5.60) 07/13/17 05:20 Urine Source RANDOM 07/12/17 11:14 Urine Color YELLOW 07/12/17 11:14 Urine Clarity CLEAR (CLEAR) 07/12/17 11:14 Urine pH 7.0 (4.6 - 8.0) 07/12/17 11:14 Ur Specific [place] 1.020 (1.005-1.030) 07/12/17 11:14 Urine Protein TRACE mg/dL (NEGATIVE) 07/12/17 11:14 Urine Glucose (UA) NEGATIVE mg/dL (NEGATIVE) 07/12/17 11:14 Urine Ketones TRACE mg/dL (NEGATIVE) 07/12/17 11:14 Urine Blood NEGATIVE (NEGATIVE) 07/12/17 11:14 Urine Nitrate NEGATIVE (NEGATIVE) 07/12/17 11:14 Urine Bilirubin SMALL (NEGATIVE) H 07/12/17 11:14 Urine Urobilinogen 1.0 E.U./dL (0.2 - 1.0) 07/12/17 11:14 Ur Leukocyte Esterase NEGATIVE (NEGATIVE) 07/12/17 11:14 Urine RBC NONE SEEN /hpf (0-5) 07/12/17 11:14 Urine WBC NONE SEEN /hpf (0-5) 07/12/17 11:14 Ur Epithelial Cells NONE SEEN /lpf (FEW) 07/12/17 11:14 Urine Bacteria NONE SEEN /hpf (NONE SEEN) 07/12/17 11:14 - Physical Exam Vitals and I&O: Vital Signs Temp 98.3 F 07/14/17 08:00 Pulse 78 07/14/17 10:13 Resp 18 07/14/17 08:00 BP 163/87 07/14/17 10:13 Pulse Ox 93 07/14/17 08:00 Intake & Output 07/13/17 07/14/17 07/14/17 18:59 06:59 18:59 Intake Total 850 500 Output Total 1 0 Balance 849 500 Weight (lbs) 71.668 kg 73.17 kg Intake: Oral 850 500 Output: Stool 1 0 Other: # Voids 4 3 # Bowel Movements 0 Active Medications: Current Medications Amlodipine Besylate (Norvasc) 5 mg PO DAILY JALEN Stop: 09/11/17 08:59 Last Admin: 07/14/17 10:13 Dose: 5 mg Calcium/Vitamin D (Oscal W/Vitamin D) 1 tab PO BID JALEN Stop: 09/11/17 08:59 Last Admin: 07/14/17 10:13 Dose: 1 tab Carbamazepine (Tegretol) 200 mg PO BID JALEN Stop: 09/11/17 08:59 Last Admin: 07/14/17 10:13 Dose: 200 mg Clonazepam (Klonopin) 0.5 mg PO BID JALEN PRN Reason: Protocol Stop: 09/11/17 08:59 Last Admin: 07/14/17 10:11 Dose: 0.5 mg Diphenhydramine HCl (Benadryl) 25 mg PO HS JALEN Stop: 09/11/17 20:59 Last Admin: 07/13/17 20:56 Dose: 25 mg Divalproex Sodium (Depakote Er) 500 mg PO BID JALEN PRN Reason: Protocol Stop: 09/11/17 19:14 Last Admin: 07/14/17 10:12 Dose: 500 mg Ferrous Sulfate (Iron) 325 mg PO TID JALEN Stop: 09/11/17 08:59 Last Admin: 07/14/17 10:14 Dose: 325 mg Fluoxetine HCl (Prozac) 10 mg PO DAILY JALEN PRN Reason: Protocol Stop: 09/11/17 08:59 Last Admin: 07/14/17 10:12 Dose: 10 mg Folic Acid (Folate) 1 mg PO DAILY JALEN Stop: 09/11/17 08:59 Last Admin: 07/14/17 10:13 Dose: 1 mg Sodium Chloride (Nacl 0.9%) 1,000 mls @ 100 mls/hr IV .Q10H JALEN Stop: 09/10/17 16:23 Last Admin: 07/13/17 03:10 Dose: 100 mls/hr Levofloxacin (Levaquin Pb) 500 mg in 100 mls @ 100 mls/hr IV Q24HR JALEN Stop: 09/11/17 12:59 Last Admin: 07/13/17 14:15 Dose: 100 mls/hr Lorazepam (Ativan) 1 mg PO TID JALEN PRN Reason: Protocol Stop: 09/11/17 08:59 Last Admin: 07/14/17 10:13 Dose: 1 mg Pantoprazole Sodium (Protonix) 40 mg PO DAILY JALEN Stop: 09/11/17 08:59 Last Admin: 07/14/17 10:12 Dose: 40 mg Primidone (Mysoline) 50 mg PO BID JALEN Stop: 09/11/17 08:59 Last Admin: 07/14/17 10:12 Dose: 50 mg Quetiapine Fumarate (Seroquel) 25 mg PO TID [facility] PRN Reason: Protocol Stop: 09/11/17 08:59 Last Admin: 07/14/17 10:12 Dose: 25 mg Tamsulosin HCl (Flomax) 0.4 mg PO HS [facility] Stop: 09/11/17 20:59 Last Admin: 07/13/17 20:55 Dose: 0.4 mg General: no acute distress, well developed, well nourished HEENT: atraumatic, normocephalic, PERRLA, EOMI, moist mucous membrane Neck: supple, no thyromegaly Cardiovascular: S1S2, regular Lungs: clear to auscultation bilaterally, clear to percussion Abdomen: soft, bowel sounds, no tender, no distended, no rebound Extremities: no cyanosis, no clubbing, no edema Neurological: awake, alert, oriented Skin: intact Infectious Disease Assmt/Plan - Problem List Patient Problems: All Active Problems COUGH AND CONGESTION (Acute) Abdominal pain (Acute) R10.9 Arthritis (Acute) M19.90 Dementia (Acute) F03.90 HTN (hypertension) (Acute) I10 Hyperlipidemia (Acute) E78.5 Retroperitoneal lymphadenopathy (Acute) R59.0 h/o anemia (Acute) h/o benign prostate hyperplasia (Acute) h/o colon cancer (Acute) - Assessment Assessment: 1. Early pneumonia. 2. Dementia. 3. H/o colon CA. 4. Anemia. - Plan Plan: Continue Levaquin.
[2017-07-14] MEDS: Levofloxacin 500mg/100mL 500 MG/100 ML BAG IV SCH (14:03)
[2017-07-15] MEDS ORDERED: Multivitamin w/ Minerals Tab PO SCH (09:00)
[2017-07-15] MEDS: Pantoprazole 40 mg EC Tab PO SCH (09:37)
[2017-07-15] MEDS: Calcium Carb/Vit D 500 mg/200 U Tab PO SCH (09:37)
[2017-07-15] MEDS: Ferrous Sulfate 325 MG TAB PO SCH ×2 (09:38→15:58)
--- NOTE | 2017-07-15 11:04 | Infectious Disease Prog Note ---
Infectious Disease Subjective - Review of Systems Service Date: 07/15/17 Subjective: There is no new change. Infectious Disease Objective - Results Result Diagrams: 07/13/17 05:20 07/13/17 05:20 Recent Labs: Laboratory Last Values WBC 5.1 Th/cmm (4.8-10.8) 07/13/17 05:20 RBC 2.87 Mil/cmm (4.30-5.70) L 07/13/17 05:20 Hgb 11.3 gm/dL (12-16) L 07/13/17 05:20 Hct 33.2 % (41.0-60) L 07/13/17 05:20 MCV 115.6 fl (80-99) H 07/13/17 05:20 MCH 39.4 pg (26.0-30.0) H 07/13/17 05:20 MCHC Differential 34.1 pg (28.0-36.0) 07/13/17 05:20 RDW 20.3 % (11.5-20.0) H 07/13/17 05:20 Plt Count 159 Th/cmm (150-400) 07/13/17 05:20 MPV 7.1 fl 07/13/17 05:20 Neutrophils % 62.1 % (40.0-80.0) 07/13/17 05:20 Lymphocytes % 25.0 % (20.0-50.0) 07/13/17 05:20 Monocytes % 6.9 % (2.0-10.0) 07/13/17 05:20 Eosinophils % 5.8 % (0.0-5.0) H 07/13/17 05:20 Basophils % 0.2 % (0.0-2.0) 07/13/17 05:20 Sodium 138 mEq/L (136-145) 07/13/17 05:20 Potassium 4.0 mEq/L (3.5-5.1) 07/13/17 05:20 Chloride 109 mEq/L (98-107) H 07/13/17 05:20 Carbon Dioxide 23.0 mEq/L (21.0-31.0) 07/13/17 05:20 Anion Gap 10.0 (7.0-16.0) 07/13/17 05:20 BUN 19 mg/dL (7-25) 07/13/17 05:20 Creatinine 0.7 mg/dL (0.7-1.3) 07/13/17 05:20 Est GFR ( Amer) > 60.0 ml/min (>90) 07/13/17 05:20 Est GFR (Non-Af Amer) > 60.0 ml/min 07/13/17 05:20 BUN/Creatinine Ratio 27.1 07/13/17 05:20 Glucose 123 mg/dL (70-105) H 07/13/17 05:20 Calcium 8.6 mg/dL (8.6-10.3) 07/13/17 05:20 Total Bilirubin 0.4 mg/dL (0.3-1.0) 07/13/17 05:20 AST 22 U/L (13-39) 07/13/17 05:20 ALT 9 U/L (7-52) 07/13/17 05:20 Alkaline Phosphatase 45 U/L (34-104) 07/13/17 05:20 Troponin I 0.01 ng/mL (0.01-0.05) 07/12/17 13:04 B-Natriuretic Peptide 13.5 pg/mL (5.0-100.0) 07/12/17 13:04 Total Protein 6.4 gm/dL (6.0-8.3) 07/13/17 05:20 Albumin 3.3 gm/dL (4.2-5.5) L 07/13/17 05:20 Globulin 3.1 gm/dL 07/13/17 05:20 Albumin/Globulin Ratio 1.1 (1.0-1.8) 07/13/17 05:20 Triglycerides 114 mg/dL (<150) 07/13/17 05:20 Cholesterol 138 mg/dL (<200) 07/13/17 05:20 LDL Cholesterol Direct 64 mg/dL (75-193) L 07/13/17 05:20 HDL Cholesterol 52 mg/dL (23-92) 07/13/17 05:20 Carcinoembryonic Ag 47.4 ng/mL (0.0-4.7) H 07/12/17 13:04 TSH 3.21 uIU/ml (0.34-5.60) 07/13/17 05:20 Urine Source RANDOM 07/12/17 11:14 Urine Color YELLOW 07/12/17 11:14 Urine Clarity CLEAR (CLEAR) 07/12/17 11:14 Urine pH 7.0 (4.6 - 8.0) 07/12/17 11:14 Ur Specific [place] 1.020 (1.005-1.030) 07/12/17 11:14 Urine Protein TRACE mg/dL (NEGATIVE) 07/12/17 11:14 Urine Glucose (UA) NEGATIVE mg/dL (NEGATIVE) 07/12/17 11:14 Urine Ketones TRACE mg/dL (NEGATIVE) 07/12/17 11:14 Urine Blood NEGATIVE (NEGATIVE) 07/12/17 11:14 Urine Nitrate NEGATIVE (NEGATIVE) 07/12/17 11:14 Urine Bilirubin SMALL (NEGATIVE) H 07/12/17 11:14 Urine Urobilinogen 1.0 E.U./dL (0.2 - 1.0) 07/12/17 11:14 Ur Leukocyte Esterase NEGATIVE (NEGATIVE) 07/12/17 11:14 Urine RBC NONE SEEN /hpf (0-5) 07/12/17 11:14 Urine WBC NONE SEEN /hpf (0-5) 07/12/17 11:14 Ur Epithelial Cells NONE SEEN /lpf (FEW) 07/12/17 11:14 Urine Bacteria NONE SEEN /hpf (NONE SEEN) 07/12/17 11:14 Influenza A (Rapid) NEG FOR INF A 07/14/17 18:55 Influenza B (Rapid) NEG FOR INF B 07/14/17 18:55 - Physical Exam Vitals and I&O: Vital Signs Temp 97.2 F 07/15/17 04:00 Pulse 77 07/15/17 09:37 Resp 18 07/15/17 04:00 BP 142/79 07/15/17 09:37 Pulse Ox 95 07/15/17 04:00 Intake & Output 07/14/17 07/15/17 07/15/17 18:59 06:59 18:59 Intake Total 800 240 Balance 800 240 Weight (lbs) 73.17 kg 70.959 kg Intake: Oral 800 240 Other: # Voids 5 3 # Bowel Movements 0 Active Medications: Current Medications Amlodipine Besylate (Norvasc) 5 mg PO DAILY JALEN Stop: 09/11/17 08:59 Last Admin: 07/15/17 09:37 Dose: 5 mg Calcium/Vitamin D (Oscal W/Vitamin D) 1 tab PO BID JALEN Stop: 09/11/17 08:59 Last Admin: 07/15/17 09:37 Dose: 1 tab Carbamazepine (Tegretol) 200 mg PO BID JALEN Stop: 09/11/17 08:59 Last Admin: 07/15/17 09:38 Dose: 200 mg Clonazepam (Klonopin) 0.5 mg PO BID JALEN PRN Reason: Protocol Stop: 09/11/17 08:59 Last Admin: 07/15/17 09:36 Dose: 0.5 mg Diphenhydramine HCl (Benadryl) 25 mg PO HS JALEN Stop: 09/11/17 20:59 Last Admin: 07/14/17 20:20 Dose: 25 mg Divalproex Sodium (Depakote Er) 500 mg PO BID JALEN PRN Reason: Protocol Stop: 09/11/17 19:14 Last Admin: 07/15/17 09:38 Dose: 500 mg Ferrous Sulfate (Iron) 325 mg PO TID JALEN Stop: 09/11/17 08:59 Last Admin: 07/15/17 09:38 Dose: 325 mg Fluoxetine HCl (Prozac) 10 mg PO DAILY JALEN PRN Reason: Protocol Stop: 09/11/17 08:59 Last Admin: 07/15/17 09:38 Dose: 10 mg Folic Acid (Folate) 1 mg PO DAILY JALEN Stop: 09/11/17 08:59 Last Admin: 07/15/17 09:38 Dose: 1 mg Sodium Chloride (Nacl 0.9%) 1,000 mls @ 100 mls/hr IV .Q10H JALEN Stop: 09/10/17 16:23 Last Admin: 07/13/17 03:10 Dose: 100 mls/hr Levofloxacin (Levaquin Pb) 500 mg in 100 mls @ 100 mls/hr IV Q24HR JALEN Stop: 09/11/17 12:59 Last Admin: 07/14/17 14:03 Dose: 100 mls/hr Lorazepam (Ativan) 1 mg PO TID JALEN PRN Reason: Protocol Stop: 09/11/17 08:59 Last Admin: 07/15/17 09:37 Dose: 1 mg Pantoprazole Sodium (Protonix) 40 mg PO DAILY JALEN Stop: 09/11/17 08:59 Last Admin: 07/15/17 09:37 Dose: 40 mg Primidone (Mysoline) 50 mg PO BID [facility] Stop: 09/11/17 08:59 Last Admin: 07/15/17 09:38 Dose: 50 mg Quetiapine Fumarate (Seroquel) 25 mg PO TID [facility] PRN Reason: Protocol Stop: 09/11/17 08:59 Last Admin: 07/15/17 09:38 Dose: 25 mg Tamsulosin HCl (Flomax) 0.4 mg PO HS [facility] Stop: 09/11/17 20:59 Last Admin: 07/14/17 20:20 Dose: 0.4 mg General: no acute distress, well developed, well nourished HEENT: atraumatic, normocephalic, PERRLA, EOMI Neck: supple Cardiovascular: S1S2, regular Lungs: clear to auscultation bilaterally, clear to percussion Abdomen: soft, no tender, no distended, no guarding Extremities: no cyanosis, no clubbing, no edema Neurological: awake, alert, oriented Skin: intact Infectious Disease Assmt/Plan - Problem List Patient Problems: All Active Problems COUGH AND CONGESTION (Acute) Abdominal pain (Acute) R10.9 Arthritis (Acute) M19.90 Dementia (Acute) F03.90 HTN (hypertension) (Acute) I10 Hyperlipidemia (Acute) E78.5 Retroperitoneal lymphadenopathy (Acute) R59.0 h/o anemia (Acute) h/o benign prostate hyperplasia (Acute) h/o colon cancer (Acute) - Assessment Assessment: 1. Early pneumonia. 2. Dementia. 3. H/o colon CA. 4. Anemia. - Plan Plan: Continue Levaquin.
[2017-07-15] MEDS: Levofloxacin 500mg/100mL 500 MG/100 ML BAG IV SCH (13:42)
[2017-07-15] MEDS ORDERED: Probiotic Screen MC PRN (15:00)
--- NOTE | 2017-07-15 15:33 | General Progress Note ---
Subjective - Review of Systems Events since last encounter: no change no fever Objective - Results Result Diagrams: 07/13/17 05:20 07/13/17 05:20 Recent Labs: Laboratory Last Values WBC 5.1 Th/cmm (4.8-10.8) 07/13/17 05:20 RBC 2.87 Mil/cmm (4.30-5.70) L 07/13/17 05:20 Hgb 11.3 gm/dL (12-16) L 07/13/17 05:20 Hct 33.2 % (41.0-60) L 07/13/17 05:20 MCV 115.6 fl (80-99) H 07/13/17 05:20 MCH 39.4 pg (26.0-30.0) H 07/13/17 05:20 MCHC Differential 34.1 pg (28.0-36.0) 07/13/17 05:20 RDW 20.3 % (11.5-20.0) H 07/13/17 05:20 Plt Count 159 Th/cmm (150-400) 07/13/17 05:20 MPV 7.1 fl 07/13/17 05:20 Neutrophils % 62.1 % (40.0-80.0) 07/13/17 05:20 Lymphocytes % 25.0 % (20.0-50.0) 07/13/17 05:20 Monocytes % 6.9 % (2.0-10.0) 07/13/17 05:20 Eosinophils % 5.8 % (0.0-5.0) H 07/13/17 05:20 Basophils % 0.2 % (0.0-2.0) 07/13/17 05:20 Sodium 138 mEq/L (136-145) 07/13/17 05:20 Potassium 4.0 mEq/L (3.5-5.1) 07/13/17 05:20 Chloride 109 mEq/L (98-107) H 07/13/17 05:20 Carbon Dioxide 23.0 mEq/L (21.0-31.0) 07/13/17 05:20 Anion Gap 10.0 (7.0-16.0) 07/13/17 05:20 BUN 19 mg/dL (7-25) 07/13/17 05:20 Creatinine 0.7 mg/dL (0.7-1.3) 07/13/17 05:20 Est GFR ( Amer) > 60.0 ml/min (>90) 07/13/17 05:20 Est GFR (Non-Af Amer) > 60.0 ml/min 07/13/17 05:20 BUN/Creatinine Ratio 27.1 07/13/17 05:20 Glucose 123 mg/dL (70-105) H 07/13/17 05:20 Calcium 8.6 mg/dL (8.6-10.3) 07/13/17 05:20 Total Bilirubin 0.4 mg/dL (0.3-1.0) 07/13/17 05:20 AST 22 U/L (13-39) 07/13/17 05:20 ALT 9 U/L (7-52) 07/13/17 05:20 Alkaline Phosphatase 45 U/L (34-104) 07/13/17 05:20 Troponin I 0.01 ng/mL (0.01-0.05) 07/12/17 13:04 B-Natriuretic Peptide 13.5 pg/mL (5.0-100.0) 07/12/17 13:04 Total Protein 6.4 gm/dL (6.0-8.3) 07/13/17 05:20 Albumin 3.3 gm/dL (4.2-5.5) L 07/13/17 05:20 Globulin 3.1 gm/dL 07/13/17 05:20 Albumin/Globulin Ratio 1.1 (1.0-1.8) 07/13/17 05:20 Triglycerides 114 mg/dL (<150) 07/13/17 05:20 Cholesterol 138 mg/dL (<200) 07/13/17 05:20 LDL Cholesterol Direct 64 mg/dL (75-193) L 07/13/17 05:20 HDL Cholesterol 52 mg/dL (23-92) 07/13/17 05:20 Carcinoembryonic Ag 47.4 ng/mL (0.0-4.7) H 07/12/17 13:04 TSH 3.21 uIU/ml (0.34-5.60) 07/13/17 05:20 Urine Source RANDOM 07/12/17 11:14 Urine Color YELLOW 07/12/17 11:14 Urine Clarity CLEAR (CLEAR) 07/12/17 11:14 Urine pH 7.0 (4.6 - 8.0) 07/12/17 11:14 Ur Specific [place] 1.020 (1.005-1.030) 07/12/17 11:14 Urine Protein TRACE mg/dL (NEGATIVE) 07/12/17 11:14 Urine Glucose (UA) NEGATIVE mg/dL (NEGATIVE) 07/12/17 11:14 Urine Ketones TRACE mg/dL (NEGATIVE) 07/12/17 11:14 Urine Blood NEGATIVE (NEGATIVE) 07/12/17 11:14 Urine Nitrate NEGATIVE (NEGATIVE) 07/12/17 11:14 Urine Bilirubin SMALL (NEGATIVE) H 07/12/17 11:14 Urine Urobilinogen 1.0 E.U./dL (0.2 - 1.0) 07/12/17 11:14 Ur Leukocyte Esterase NEGATIVE (NEGATIVE) 07/12/17 11:14 Urine RBC NONE SEEN /hpf (0-5) 07/12/17 11:14 Urine WBC NONE SEEN /hpf (0-5) 07/12/17 11:14 Ur Epithelial Cells NONE SEEN /lpf (FEW) 07/12/17 11:14 Urine Bacteria NONE SEEN /hpf (NONE SEEN) 07/12/17 11:14 Influenza A (Rapid) NEG FOR INF A 07/14/17 18:55 Influenza B (Rapid) NEG FOR INF B 07/14/17 18:55 - Physical Exam Vitals and I&O: Vital Signs Temp 97 F 07/15/17 13:55 Pulse 66 07/15/17 13:55 Resp 17 07/15/17 13:55 BP 141/83 07/15/17 13:55 Pulse Ox 94 07/15/17 13:55 Intake & Output 07/14/17 07/15/17 07/15/17 18:59 06:59 18:59 Intake Total 800 240 300 Balance 800 240 300 Weight (lbs) 73.17 kg 70.959 kg 70.76 kg Intake: Oral 800 240 300 Other: # Voids 5 3 2 # Bowel Movements 0 0 Active Medications: Current Medications Amlodipine Besylate (Norvasc) 5 mg PO DAILY JALEN Stop: 09/11/17 08:59 Last Admin: 07/15/17 09:37 Dose: 5 mg Calcium/Vitamin D (Oscal W/Vitamin D) 1 tab PO BID [facility]EN Stop: 09/11/17 08:59 Last Admin: 07/15/17 09:37 Dose: 1 tab Carbamazepine (Tegretol) 200 mg PO BID [facility]ALEN Stop: 09/11/17 08:59 Last Admin: 07/15/17 09:38 Dose: 200 mg Clonazepam (Klonopin) 0.5 mg PO BID JALEN PRN Reason: Protocol Stop: 09/11/17 08:59 Last Admin: 07/15/17 09:36 Dose: 0.5 mg Diphenhydramine HCl (Benadryl) 25 mg PO HS [facility]ALEN Stop: 09/11/17 20:59 Last Admin: 07/14/17 20:20 Dose: 25 mg Divalproex Sodium (Depakote Er) 500 mg PO BID JALEN PRN Reason: Protocol Stop: 09/11/17 19:14 Last Admin: 07/15/17 09:38 Dose: 500 mg Ferrous Sulfate (Iron) 325 mg PO TID JALEN Stop: 09/11/17 08:59 Last Admin: 07/15/17 09:38 Dose: 325 mg Fluoxetine HCl (Prozac) 10 mg PO DAILY JALEN PRN Reason: Protocol Stop: 09/11/17 08:59 Last Admin: 07/15/17 09:38 Dose: 10 mg Folic Acid (Folate) 1 mg PO DAILY JALEN Stop: 09/11/17 08:59 Last Admin: 07/15/17 09:38 Dose: 1 mg Sodium Chloride (Nacl 0.9%) 1,000 mls @ 100 mls/hr IV .Q10H [facility]EN Stop: 09/10/17 16:23 Last Admin: 07/13/17 03:10 Dose: 100 mls/hr Levofloxacin (Levaquin Pb) 500 mg in 100 mls @ 100 mls/hr IV Q24HR [facility]ALEN Stop: 09/11/17 12:59 Last Admin: 07/15/17 13:42 Dose: Not Given Lactobacillus Rhamnosus (Culturelle) 1 each PO DAILY JALEN Stop: 09/14/17 08:59 Lorazepam (Ativan) 1 mg PO TID JALEN PRN Reason: Protocol Stop: 09/11/17 08:59 Last Admin: 07/15/17 09:37 Dose: 1 mg Miscellaneous (Probiotic Screen) 1 ea MC PRN PRN PRN Reason: PROTOCOL Stop: 09/13/17 14:59 Pantoprazole Sodium (Protonix) 40 mg PO DAILY JALEN Stop: 09/11/17 08:59 Last Admin: 07/15/17 09:37 Dose: 40 mg Primidone (Mysoline) 50 mg PO BID JALEN Stop: 09/11/17 08:59 Last Admin: 07/15/17 09:38 Dose: 50 mg Quetiapine Fumarate (Seroquel) 25 mg PO TID [facility]ALEN PRN Reason: Protocol Stop: 09/11/17 08:59 Last Admin: 07/15/17 09:38 Dose: 25 mg Tamsulosin HCl (Flomax) 0.4 mg PO HS [facility]ALEN Stop: 09/11/17 20:59 Last Admin: 07/14/17 20:20 Dose: 0.4 mg General: No acute distress HEENT: Atraumatic, PERRLA Neck: Supple, JVD Cardiovascular: Regular rate Lungs: Clear to auscultation Abdomen: Bowel sounds Assessment/Plan - Problem List Patient Problems: All Active Problems COUGH AND CONGESTION (Acute) Abdominal pain (Acute) R10.9 Arthritis (Acute) M19.90 Dementia (Acute) F03.90 HTN (hypertension) (Acute) I10 Hyperlipidemia (Acute) E78.5 Retroperitoneal lymphadenopathy (Acute) R59.0 h/o anemia (Acute) h/o benign prostate hyperplasia (Acute) h/o colon cancer (Acute) - Assessment Assessment: Current Active Problems Problem Status Onset COUGH AND CONGESTION Acute PNEUMONIA PROTEIN CALORIE MALNUTRITION DEMENTIA HX COLON CA s/p fall - Plan Plan: iv rocephin ID consult cbc/bmp in am fall precautions continue current orders
[2017-07-16] MEDS ORDERED: Lactobacillus Rhamnosus 10 Billion CFU Capsule PO SCH (09:00)
--- NOTE | 2017-07-17 22:31 | Discharge Summary ---
DATE OF DISCHARGE: 07/15/2017 COURSE OF TREATMENT: This is a 62-year-old gentleman who was admitted through the Emergency Room from a custodial facility due to cough and congestion. In the Emergency Room, series of tests were done on to which the patient was found to have pneumonia. The patient hence was admitted to medical/surgical unit on which the patient received series of IV antibiotics. ID, doctor was also consulted for antibiotic management. Once stabilized, the patient was discharged back to board and care to follow medication reconciliation and will be followed by the patient's primary doctor. JOB# [id number]
== END 2017-07-15 15:45 | disposition home or self-care (01) | DRG 178 ==
LOC: ER 12:35 → MSI 15:12
PROVIDERS: ADMIT Internal Medicine; ATTEND Internal Medicine
DX: J69.0 Pneumonitis due to inhalation of food and vomit (principal); E46 Unspecified protein-calorie malnutrition; F03.90 Unspecified dementia, unspecified severity, without behavioral disturbance, psychotic disturbance, mood disturbance, and anxiety; C18.9 Malignant neoplasm of colon, unspecified; E87.1 Hypo-osmolality and hyponatremia; D53.9 Nutritional anemia, unspecified; N40.0 Benign prostatic hyperplasia without lower urinary tract symptoms; F32.9 Major depressive disorder, single episode, unspecified; S00.81XA Abrasion of other part of head, initial encounter; W18.30XA Fall on same level, unspecified, initial encounter; Y93.89 Activity, other specified; Y92.89 Other specified places as the place of occurrence of the external cause; Y99.8 Other external cause status; Z79.899 Other long term (current) drug therapy; Z68.24 Body mass index [BMI] 24.0-24.9, adult
CPT/HCPCS: 36415-UA; 71010-TC; 80053-TC; 80061-TC; 81001-TC; 82378-90; 83880-TC; 84443-TC; 84484-TC; 85025-TC; 87070; 87804-TC; 93005; J0456; J0696; J1956; J7030; Z7502; Z7610